=== PATIENT | female | born 1940 | race Caucasian/White ===

== ENCOUNTER 2017-02-10 11:12 | Emergency (ER) | payer OTHER ==
[~2017-02-10] VITALS: Ht 157.5 cm; Wt 102.1 kg
[~2017-02-10 11:12] MED LIST: ACTOS 30 MG TAB30 M1 PO; CLEOCIN HCL300 MG PO; DIAZEPAM 2MG TAB2 MG PO; DILTIAZEM 24HR180 MG; DILTIAZEM 24HR240 MG PO; GLUCOPHAGE XR500 MG PO; GLUCOPHAGE500 MG PO; NORCO 5-325 TA1 EACH PO; PRINIVIL20 M1; PROAIR HFA8.5 GM IH; PROAIR HFA8.5 GM INH; PROTONIX40 M2 PO; ZYRTEC 10 MG TA10 M1 PO; ZYRTEC-D TABLE1 EAC1
[2017-02-10 12:23] VITALS: BP 172/84
== END 2017-02-10 12:24 | disposition home or self-care (01) ==
LOC: ER 11:12
DX: S00.03XA Contusion of scalp, initial encounter (principal); S50.01XA Contusion of right elbow, initial encounter; I10 Essential (primary) hypertension; K21.9 Gastro-esophageal reflux disease without esophagitis; J45.909 Unspecified asthma, uncomplicated; E11.9 Type 2 diabetes mellitus without complications; Z96.651 Presence of right artificial knee joint; Z88.0 Allergy status to penicillin; W01.0XXA Fall on same level from slipping, tripping and stumbling without subsequent striking against object, initial encounter; Y93.31 Activity, mountain climbing, rock climbing and wall climbing; Y92.828 Other wilderness area as the place of occurrence of the external cause; Y99.8 Other external cause status

== ENCOUNTER 2017-11-08 13:31 | Inpatient (IN) | payer OTHER ==
[~2017-11-08] VITALS: Ht 157.5 cm; Wt 95.6 kg
--- NOTE | ~2017-11-08 | P ---
[facility] [place] [address] PROCEDURE REPORT Name: ESTEFANI RIOS Room #: 419-P [facility] IN ..#: [id number] Admission: 11/08/17 Attend Phys: Hector Self MD Discharge: Date of : 40 Report #: [id number] THIS REPORT FOR: //name// CC: Hector Posada DATE OF SERVICE: 11/09/2017 REQUESTING PHYSICIAN: Nayan Posada MD. CHIEF COMPLAINT: Right lateral thigh necrotic wound. HISTORY OF PRESENT ILLNESS: This is a pleasant white female who sustained a possible spider bite several days ago, which has been progressively getting worse and failed outpatient oral antibiotic therapy. I was asked to see the patient for debridement of the necrotic tissue. PREPROCEDURE DIAGNOSES: 1. Insect bite with envenomation of the right hip with central area of necrosis. 2. Diabetes mellitus. POSTPROCEDURE DIAGNOSES: 1. Insect bite with envenomation of the right hip with central area of necrosis. 2. Diabetes mellitus. DESCRIPTION OF PROCEDURE: After timeout was taken, verbal consent was obtained. The patient had excisional debridement down to and including subcutaneous tissue with removal of both viable and nonviable tissue using scalpel and forceps. 1% lidocaine with epinephrine was used with a total of 10 mL injected. The patient had adequate anesthesia with that. 100% of the wound was debrided for a total of less than 20 cm2 that was debrided. Preprocedure measurements were 3.3 x 4.2 x 0.1 cm. Postprocedure measurements were 3.3 x 4.5 x 1.8 cm. Bleeding was minimal, easily controlled with pressure and silver nitrate cauterization. Post-debridement, the patient had the wound packed with morphine, Silvadene moist gauze and covered with an ABD. The patient tolerated the procedure well. The debrided tissue was sent to pathology as well. By: [id number] Charly Rene MD /nt
--- NOTE | ~2017-11-08 | HC ---
[facility] [place] [address] CONSULTATION Name: ESTEFANI RIOS Room #: 419-P ADM IN ..#: [id number] Admission: 11/08/17 Attend Phys: Hector Self MD Discharge: Date of : 40 Report #: [id number] THIS REPORT FOR: //name// CC: Hector Posada DATE OF SERVICE: 11/09/2017 WOUND CARE CONSULTATION REQUESTING PHYSICIAN: Dr. Nayan Posada. CHIEF COMPLAINT: Right hip wound, concerning for brown recluse spider bite. HISTORY OF PRESENT ILLNESS: This is a 77-year-old white female who states several days ago, she was at her grandson's baseball game sitting outside for a prolonged period of time and later that evening, noted that she had an area of redness and itching along the right lateral aspect of her hip. The patient states that within the next 24 hours, she started having increasing pain and warmth. She saw her primary care physician, Dr. Nayan Posada who placed on Bactrim and then followed her up. The patient was having progression of the erythema, the warmth and the size of the area, so the patient was admitted for IV antibiotics and we were asked to see the patient for wound care. The patient does complain of minimal pain associated with this. The patient denies actual fevers or chills. The patient states she has never had any other wounds that she could not heal in the past. PAST MEDICAL HISTORY: The patient herself is somewhat poor historian and past medical history and rest of the history is obtained from the chart. The patient, according to the chart, has a history of type 2 diabetes with noncompliance, history of toxic encephalopathy, history of early dementia. CURRENT MEDICATIONS: Multiple, I reviewed the patient's medication list. DRUG ALLERGIES: None. SOCIAL HISTORY: The patient lives with her . FAMILY HISTORY: Not pertinent to current medical condition. REVIEW OF SYSTEMS: CONSTITUTIONAL: The patient denies fevers or chills. NEUROLOGIC: The patient denies numbness, tingling, weakness in arms or legs. EYES: No complaints. ENT: No complaints. CARDIAC: The patient denies chest pain, palpitations, peripheral edema. [facility] [address] [place] [address] CONSULTATION Name: ESTEFANI RIOS Room #: 419-P [facility] IN [facility].#: [id number] Admission: 11/08/17 Attend Phys: Hector Self MD Discharge: Date of : 40 Report #: [id number] RESPIRATORY: The patient denies shortness breath, cough or wheezes. GASTROINTESTINAL: The patient denies nausea, vomiting, abdominal pain. GENITOURINARY: The patient denies urgency or frequency. MUSCULOSKELETAL: No complaints. SKIN: There is an area of induration and necrosis on the right lateral thigh. PHYSICAL EXAMINATION: VITAL SIGNS: Temperature 36, pulse 76, respiratory rate 16, BP 168/76. GENERAL: This is an alert, oriented x [address], but not time elderly white female who is in no obvious distress. HEENT: Normocephalic, atraumatic. Mucous membranes moist. Pupils are round. Sclerae are white. NECK: Supple, nontender. LUNGS: Clear. HEART: Regular. ABDOMEN: Obese, soft, otherwise nontender. EXTREMITIES: The patient moves all extremities without difficulty. Distal pulses are intact. NEUROLOGIC: Cranial nerves 2-12 grossly intact. Motor and sensory grossly intact. SKIN: Evaluation reveals an area of induration approximately 5 x 7 cm with a central area of necrosis approximately 3 cm. It is firm and not fluctuant, slightly tender to palpation. There is increased warmth. There is some area of denuded epithelial tissue. No other associated wounds are noted. NEUROLOGIC: Cranial nerves 2-12 grossly intact. Motor and sensory grossly intact. LABORATORY DATA: White count 7.8, hemoglobin 13.9. Albumin 3.4, glucose is 195, creatinine is 1.4. Soft tissue ultrasound of the right lower extremity shows no signs of abscess. WOUND CARE COURSE: An excisional debridement was performed of this wound, please see separate note for this. The patient tolerated the procedure well. I spoke with Dr. Nayan Posada. At this point in time, we will start morphine, Silvadene cream packed within the wound twice daily, cover this with an ABD. The patient is already on minocycline for both antibacterial as well as anti-inflammatory effects as recommended per Dr. Helio Bailey, cook fast food. IMPRESSION: 1. Right lateral hip wound, most likely secondary to brown recluse spider envenomation with cellulitis. 2. Status post debridement, right lateral hip wound. 3. Diabetes mellitus, type 2. 4. Early dementia. 5. Generalized debility. [address] [address] CONSULTATION Name: BLANCA,ESTEFANI Ewing Room #: 419-P [facility] IN M.R.#: [id number] Admission: 11/08/17 Attend Phys: Hector Self MD Discharge: Date of : 40 Report #: [id number] PLAN: Described as above. We will also make sure we continue to maximize the patient's protein supplementation for healing and glycemic control. At the time of discharge, the patient will be sent home with home health for continued dressing changes. We will follow the patient up as an outpatient to ensure adequate healing. I appreciate the ability to consult. By: [id number] Charly Rene MD /irvin
--- NOTE | ~2017-11-08 | H ---
[facility] [place] [address] HISTORY AND PHYSICAL Name: ESTEFANI RIOS Room #: 419-P [facility] IN M.R.#: [id number] Admission: 11/08/17 Attend Phys: Cassie Self MD Discharge: 11/10/17 Date of : 40 Report #: [id number] THIS REPORT FOR: //name// CC: Cassie Posada CHIEF COMPLAINT: Progressive skin involvement from venom exposure from an insect bite, noncompliance, dementia, failure of outpatient treatment. HISTORY OF PRESENT ILLNESS: The patient is a 77-year-old white female with a history of diabetes and mild cognitive dysfunction and noncompliance. She presented to my office on 11/02/2017 with 10 x 5 area of superficial erythema with a small tiny central bite cassie over the right lateral hip. She was placed on sulfamethoxazole/trimethoprim and asked to return in 4 days. She returned on 11/06/2017 with a 3 cm vesicle that was flaccid with bloody fluid inside. The superficial erythema had progressed to a 5-10 mm of induration, although the total 10 x cm size remained unchanged. The lesion was tender. The patient vehemently denied having been given a prescription for an antibiotic. Telephone call with the pharmacy indicated that the patient had picked up the antibiotic and had paid a copay of about $2. At this time, a glucose-6 PD blood test was drawn with the intention of starting dapsone if necessary. Prednisone was prescribed and sent to her pharmacy. A followup appointment was made. The patient presented on 11/08/2017 for a recheck. At this time, there was deeper induration and significant areas of necrosis covering the bulk of the lesion. The lesion was tender. The patient was unable to recall taking any special medications to treat this lesion. She did report that it was tender and sore. PAST MEDICAL HISTORY: Over the last several years, she has become progressively noncompliant with medications for her type 2 diabetes, and her hemoglobin A1c has steadily risen with the most recent A1c being a 9.5 on 10/26/2017. She has chronic kidney disease stage 3 with an eGFR of 52. Her fasting blood sugar was 189 at that time, her A1c was 9.5. She has hypertension, restless legs syndrome. MEDICATIONS: Her medication list consists of Bystolic 5 mg 1 daily, metformin 500 mg twice daily, lisinopril 20 mg once daily. Although she insisted that this list was absolutely complete, she later realized that it did not include her ropinirole 2 mg she takes in the evening for restless legs syndrome. ALLERGIES: PENICILLIN. SOCIAL HISTORY: She lives in her own home with her . She does not drink nor smoke nor use drugs of abuse. They do have a 40-year-old adult son who at times lives with them, but she indicates they do not need him to help them keep track of their medications or medical treatments. [address] [address] HISTORY AND PHYSICAL Name: ESTEFANI RIOS Room #: 419-P [facility] IN M.R.#: [id number] Admission: 11/08/17 Attend Phys: Cassie Self MD Discharge: 11/10/17 Date of : 40 Report #: [id number] REVIEW OF SYSTEMS: Entirely negative except for the pain of the insect envenomation area of the right hip. She denies urination problems. OBJECTIVE: VITAL SIGNS: Her blood pressure is 152/78, pulse 71. HEENT: Unremarkable. LUNGS: Clear. ABDOMEN: Obese and soft and nontender, without hepatosplenomegaly. CARDIOVASCULAR: Heart tones are normal with a grade 3/6 systolic ejection murmur. SKIN: The skin of the feet are intact. There is a 5 x 7 cm now area of deep induration over the right hip. There is a 3 cm central area where the blister has ruptured and the surface of the skin appears to be intact despite necrosis having taken place. NEUROLOGIC: She appears slightly more confused than usual. LABORATORY DATA: Her fingerstick blood sugar in the office was 211. ASSESSMENT: 1. Insect envenomation of the right hip, characteristic of a brown recluse spider bite with deep induration, at least 5 x 7 cm of size with central necrosis. 2. Complete failure of outpatient treatment because of the patient's cognitive dysfunction: She is not taking the prescribed prednisone nor the prescribed antibiotic. She denies having had prescriptions for these medications. 3. Cognitive dysfunction: The patient does not recognize having cognitive dysfunction and denies having been given these prescriptions, although the pharmacy confirms that she had picked them up and made her copayments for them. 4. Hyperglycemia with its attendant confusion and immunosuppression. 5. Today, she is more confused than usual: Toxic encephalopathy. 6. Chronic kidney disease stage 3. 7. Hypertension. 8. Restless legs syndrome. PLAN: Treatment of an insect bite envenomation requires anti-inflammation medications to reduce the spread of the necrosis. The patient has demonstrated she is unable to take prednisone as an outpatient at home, and therefore requires hospitalization where the medication can be reliably delivered. With an envenomation and skin necrosis of this severe degree, the anti-inflammatory medication needs to be intravenous corticosteroids. The intravenous corticosteroids will raise her already high blood sugars. The patient does not have the cognitive ability to check her blood sugars 4 times a day and administer insulin at home, and therefore, this needs to be done in an inpatient setting. Antibiotics need to be administered as well. Dermatology specialty consultation is necessary to confirm the diagnosis and treatment approach. Wound care consultation is necessary should debridement become indicated, and [facility] [address] [place] [address] HISTORY AND PHYSICAL Name: CASEESTEFANI Room #: 419-P DIS IN M.R.#: [id number] Admission: 11/08/17 Attend Phys: Cassie Self MD Discharge: 11/10/17 Date of : 40 Report #: [id number] for continued followup as well. ADDITIONAL DIAGNOSIS: As the patient got up, out of her chair in my office, she left a substantial red spot from being incontinent of urine during the visit. She denied having urine and bladder control problems. ADDITIONAL DIAGNOSIS: Urinary incontinence. By: [id number] Nayan Posada MD /nt
--- NOTE | ~2017-11-08 | D ---
[facility] [place] [address] DISCHARGE SUMMARY Name: ESTEFANI RIOS Room #: 419-P [facility] IN M.R.#: [id number] Admission: 11/08/17 Attend Phys: Cassie Self MD Discharge: 11/10/17 Date of : 40 Report #: [id number] THIS REPORT FOR: //name// CC: Cassie Posada DATE OF SERVICE: 11/10/2017 SUMMARY OF HISTORY AND PHYSICAL: The patient presented to the office on 11/08/2017 after a 6-day trial of outpatient treatment at home for an envenomation insect bite lesion to her right hip. The size of the lesion and depth of the lesion steadily progressed. At the same time, the patient insisted she had not been given any prescription medications to treat it. Cognitive dysfunction and toxic encephalopathy were confirmed when her pharmacy reported that indeed she had picked up the medications and made her copayment for them. Inpatient hospitalization for aggressive treatment to arrest the steady progression of the envenomation was indicated. SUMMARY OF HOSPITAL COURSE: She was admitted to the hospital and immediately started on intravenous Solu-Medrol every 6 hours. Over the next 24 hours, there was no improvement in the induration of her lesion. At the 48-hour cassie, there was a small, but definite amount of lessening of the circumference of her lesion and the depths of the induration. She was seen in consultation by Dr. Bailey of the Dermatology service. It was his impression that she had a brown recluse spider bite. The lesion had been debrided at the time of his examination. He felt that she did not have a systemic reaction to the brown recluse bite, and that it was confined to the skin. He recommended continuation of the antibiotics and continuation of the corticosteroid therapy. He recommended close outpatient followup after the patient was discharged. She was seen in wound care consultation by Dr. Charly Rene, who debrided the lesion. The pathology report confirmed fat necrosis, as well as marked acute inflammation and fibrinoid degeneration. On the day of discharge, she was alert and oriented with clear lung krishna and persistent grade 3/6 systolic murmur. She reported feeling better with minimal discomfort. Examination showed the beginning of shrinking of the size of the lesion and shrinking of the degree of induration. On the day of discharge, her mental clarity had improved and was attributed to her blood sugars having been lowered through the use of her sliding scale insulin. She remained unaware of urine incontinence, the nurse pointed out to her that when she got up from her chair, the blankets she had been sitting on was soaked with urine, and she indicated that she had not realized that that had [address] [address] DISCHARGE SUMMARY Name: ESTEFANI RIOS Room #: 419-P [facility] IN M.R.#: [id number] Admission: 11/08/17 Attend Phys: Cassie Self MD Discharge: 11/10/17 Date of : 40 Report #: [id number]. LABORATORY DATA: The pathology report showed fat necrosis. Her blood sugars were 267-377 and managed by sliding scale insulin. Her creatinine was 1.4 compared to her baseline of 1.03. Her BUN was 28 compared to a baseline of 20. WBCs were 7.8 thousand, hemoglobin was 13.9. Glucose 6-PD from the office became available, and was normal. Hemoglobin A1c was 8.4. Urinalysis was normal except for trace white blood cells, and a culture was negative. At the time of dictation, a culture of the wound debridement is pending. CT scan of the abdomen and pelvis showed borderline prominent right inguinal adenopathy that could be reactive, but was otherwise unremarkable. Ultrasound around the area of the right hip was negative. Chest x-ray was unremarkable. DISCHARGE DIAGNOSES: 1. Brown recluse bite with a large area of envenomation with biopsy-proven fat necrosis of the right thigh. 2. Demonstrated response to intravenous corticosteroid therapy while she was in the hospital. 3. Debridement of the necrotic areas was indicated and was performed. 4. Toxic encephalopathy that improved with treatment of the lesion. 5. Significant cognitive dysfunction that the patient denied, was an important feature of the failure of outpatient treatment of the lesion prior to being hospitalized. 6. Chronic kidney disease with mild acute decrease in kidney function. 7. Hypertension. 8. Hyperglycemia that was managed with sliding scale insulin. 9. She is immunosuppressed from her long-standing poorly controlled diabetes and more acute hyperglycemia. 10. Restless legs syndrome. 11. Grade 3/6 systolic ejection murmur. 12. The patient denied urinary incontinence, although she was incontinent of urine. PLAN: The patient's lesion was felt sufficiently stable by the 2 expert consultants for outpatient therapy. Prednisone 40 mg a day with minocycline 100 mg twice daily and the addition of Jardiance samples to her diabetic treatment regimen along with close clinical followup by home health nursing was planned. Written prescriptions were given to the patient and her . Orders were sent to the home health care agency to open her case today after discharge. She is to come see me in the office in 2 days. Written wound care instructions for [facility] [address] [place] [address] DISCHARGE SUMMARY Name: ESTEFANI RIOS Room #: 419-P [facility] IN ..#: [id number] Admission: 11/08/17 Attend Phys: Cassie Self MD Discharge: 11/10/17 Date of : 40 Report #: [id number] cleansing and placement of Xeroform gauze with the addition of Silvadene/morphine ointment were sent to the home health care agency as well as handed to the patient and her . Standard instructions to call if any questions or problems arose were given to the patient and her . By: 0820 1018 Nayan Posada MD /nt
--- NOTE | ~2017-11-08 | PATH ---
[facility] [address] [place] [address] PATHOLOGY RPT PROCEDURE Name: ESTEFANI IRIZARRY Room #: 419-P [facility] IN M.R.#: [id number] Admission: 11/08/17 Date of : 40 Discharge: 11/10/17 Report #: [id number] Path Case #: [id number] [facility] Accession Number: [id number] . 01 Material submitted: . RIGHT UPPER THIGH . 01 Clinical history: . Cellulitis . 02 Diagnosis: Fibrovascular connective tissue, right upper thigh, debridement: - Marked acute inflammation associated with fibrinoid degeneration and areas of fat necrosis. (IUV:zozie; 11/13/2017) QMS/11/13/2017 . 02 Electronically signed: . Madeline Nelson MD, Pathologist NPI- [id number] . 01 Gross description: . The specimen is received in formalin, labeled "Estefani Irizarry, right upper thigh", and is one half of an unoriented skin ellipse measuring 2.4 x 1.5 excised to a depth of 1.0 cm. The skin surface is quach-brown within the epidermis divided into a checkered pattern. The specimen is serially sectioned into 5 pieces to show a quach-yellow edematous cut surface. Associate Professor Of Kinesiology sections are submitted in A1 and A2. ([facility]; 11/12/2017) SHS/SHS . 02 Pathologist provided ICD-10: L03.115 . 02 CPT . 341852 Performed at: [address] [id number] MD Vitaliy Queen MD Phone: [phone] Performed at: [address] [id number] MD Madeline Nelson MD Phone: [phone]
[2017-11-08 15:23] LABS: ABSOLUTE NEUTROPHILS 4.4 thou/uL (1.4-8.2); BASOPHILS 1.1 % (0.0-2.0); EOSINOPHILS 9.9 % (0.0-3.0); HEMOGLOBIN 13.9 gm/dL (12.0-15.0); LYMPHOCYTES 27.9 % (24.0-44.0); MCH 30.5 pg (26.0-34.0); MCHC 33.8 g/dL (28.0-37.0); MCV 90.2 fL (80.0-100.0); MONOCYTES 4.4 % (1.0-8.0); PLATELET COUNT 208 thou/uL (150-400); POLYS 56.7 % (36.0-66.0); RBC 4.54 mil/uL (4.20-5.00); RDW 13.8 % (10.5-14.5); WBC 7.8 thou/uL (4.0-11.0)
[2017-11-08 15:37] LABS: ALBUMIN 3.4 g/dL (3.4-5.0); CALCIUM 9.2 mg/dL (8.5-10.1); CREATININE 1.4 mg/dL (0.6-1.0); TOTAL BILIRUBIN 0.5 mg/dL (<0.1-1.0); TOTAL PROTEIN 6.9 g/dL (6.4-8.2)
[2017-11-08 16:27] LABS: URINE BILIRUBIN NEGATIVE (Negative); URINE BLOOD NEGATIVE (Negative); URINE CLARITY CLEAR; URINE COLOR YELLOW; URINE GLUCOSE-RANDOM* NEGATIVE (Negative); URINE KETONES NEGATIVE (Negative); URINE NITRITE-REFLEX NEGATIVE (Negative); URINE PROTEIN (DIPSTICK) NEGATIVE (Negative); URINE UROBILINOGEN 0.2 E.U./dl (0.2-1.0)
[2017-11-08 16:28] LABS: URINE LEUKOCYTES-REFLEX TRACE (Negative)
[2017-11-08 19:35] VITALS: BP 153/84
[2017-11-09 01:07] LABS: GLYCOHEMOGLOBIN (HGB A1C) 8.4 % (4.8-5.6)
[2017-11-09 03:35] VITALS: BP 167/88
[2017-11-09 07:15] VITALS: BP 168/76
[2017-11-09 13:43] VITALS: BP 168/76
[2017-11-09 15:43] VITALS: BP 153/77
[2017-11-09 21:06] VITALS: BP 164/88
[2017-11-10 04:22] LABS: ALBUMIN 3.3 g/dL (3.4-5.0); CREATININE 1.3 mg/dL (0.6-1.0); POTASSIUM 4.8 mmol/L (3.5-5.1); TOTAL BILIRUBIN 0.3 mg/dL (<0.1-1.0); TOTAL PROTEIN 6.8 g/dL (6.4-8.2)
[2017-11-10 05:31] VITALS: BP 160/97
[2017-11-10 07:50] VITALS: BP 177/99
[2017-11-10] MEDS ORDERED: JARDIANCE10 MG PO (12:32)
[2017-11-10] MEDS ORDERED: PREDNISONE 10 M10 MG PO (12:32)
[2017-11-10] MEDS ORDERED: REQUIP 1 MG TABL1 M1 PO (12:32)
[2017-11-10] MEDS ORDERED: MINOCIN100 MG PO (12:32)
[2017-11-10] MEDS ORDERED: MORPHINE SULFAT15 M3 TOP (12:39)
[2017-11-10] MEDS ORDERED: TENORMIN25 MG PO (12:46)
[2017-11-10 13:30] VITALS: BP 168/76
== END 2017-11-10 14:15 | disposition home health service (06) | DRG 901 ==
LOC: 4E 13:31
PROVIDERS: Internal Medicine
PROC: 0JBL0ZZ Excision of Right Upper Leg Subcutaneous Tissue and Fascia, Open Approach (ICD-10-PCS; principal; 2017-11-09)
DX: T63.334A Toxic effect of venom of brown recluse spider, undetermined, initial encounter (principal); G92 Toxic encephalopathy; F03.90 Unspecified dementia, unspecified severity, without behavioral disturbance, psychotic disturbance, mood disturbance, and anxiety; E11.65 Type 2 diabetes mellitus with hyperglycemia; I10 Essential (primary) hypertension; F09 Unspecified mental disorder due to known physiological condition; Z88.0 Allergy status to penicillin; Z91.19 Patient's noncompliance with other medical treatment and regimen; Y92.310 Basketball court as the place of occurrence of the external cause
CPT/HCPCS: 10183

== ENCOUNTER 2017-11-26 12:53 | Inpatient (IN) | payer OTHER ==
[~2017-11-26] VITALS: Ht 157.5 cm; Wt 91.5 kg
--- NOTE | ~2017-11-26 | O ---
[facility] [place] [address] OPERATIVE REPORT Name: ESTEFANI RIOS Room #: 217-P [facility] IN .R.#: [id number] Admission: 11/26/17 Attend Phys: Hector Self MD Discharge: Date of : 40 Report #: [id number] THIS REPORT FOR: //name// CC: Hector Posada DATE OF SERVICE: 11/27/2017 PREOPERATIVE DIAGNOSIS: Necrotic wound, right leg with necrotic fat and skin edge. This is likely from a spider bite. POSTOPERATIVE DIAGNOSIS: Necrotic wound, right leg with necrotic fat and skin edge. This is likely from a spider bite. PROCEDURE PERFORMED: Debridement of necrotic skin edges and subcutaneous fatty tissue. The wound was then closed with nylon sutures loosely. Packed with saline-soaked gauze. ANESTHESIA: IV sedation and local 0.25% Marcaine at the suture site. DESCRIPTION OF PROCEDURE: With the patient under IV sedation, the right leg was prepped and draped in sterile fashion, Betadine was used to prep the leg. A fine pickup and Metzenbaum scissor was used to trim the necrotic subcutaneous fat tissue. I also trimmed several areas of the skin, about a millimeter thickness. The wound looks clean after the debridement. I did not see any purulent fluid present. The wound looked like it could come together pretty easily. So, I did go ahead and closed the wound loosely with external nylon suture. Three separate 4-0 nylon sutures were placed. At the corner, loose and fluffy gauze was then used to pack the cavity. Hopefully, this will allow the wound to heal up. This was discussed with the family. She will not need any dressing change at this point. I will probably remove the packing in 24 hours. There is a chance that it may not work this way and will have to be treated as an open wound subsequently. By: 1724 1745 Bc Wirght MD /nt
--- NOTE | ~2017-11-26 | H ---
[facility] [place] [address] HISTORY AND PHYSICAL Name: ESTEFANI RIOS Room #: 217-P [facility] IN M.R.#: [id number] Admission: 11/26/17 Attend Phys: Hector Self MD Discharge: 11/29/17 Date of : 40 Report #: [id number] THIS REPORT FOR: //name// CC: Hector Posada DATE OF SERVICE: 11/26/2017 CHIEF COMPLAINT: Envenomation brown recluse bite with large open wound that is not healing and is infected. The patient suffered an envenomation from an insect bite characteristic of brown recluse spider on about 10/30/2017 while at an outside sporting event. She presented to my office on 11/02/2017 and despite treatment as best she could accomplish, the lesion progressed and on 11/08/2017, it was about 10 cm in diameter with 5-10 mm of induration and a large vesicle had formed and ruptured. She was admitted because of failure of outpatient therapy to improve the envenomation from the insect and to slow down the spread of the toxin effect. The wound was debrided and she was treated with intravenous corticosteroids and after two days of aggressive therapy the wound began to decrease in induration and size. At that time, she was discharged with home health to monitor her taking her pills and for dressing changes. Since then, there has been no significant improvement. She came to the office today for a followup visit and her wound had copious amounts of thick green pus draining from it. The induration was still present and the size of the wound had not improved. She was in tears over the lack of improvement. The wound itself was also quite tender to the touch and painful. PAST MEDICAL HISTORY: Significant for a long history of noncompliance with slowly progressive cognitive dysfunction that the patient denies. She has type 2 diabetes, chronic kidney disease, hypertension, hyperglycemia, restless legs syndrome, grade 3/6 systolic ejection murmur and urinary incontinence. Her EGFR was 52 and her hemoglobin A1c was 9.5 in early October. ALLERGIES: PENICILLIN. SOCIAL HISTORY: She lives in her home with her and an adult son also is living with them currently. Initially, she said that he did not help with her medications and then she said that he bought her a large pill box with multiple small places to put medications on a daily basis. She said she did take medicines from the pill container, and also said she took the pills from her bottles "mostly in the morning when I think about it." REVIEW OF SYSTEMS: HEENT is unremarkable. There is no breathing problems, shortness of breath or chest pain. She does not have abdominal discomfort, constipation or diarrhea. She denies urinary difficulties. She denies [facility] [address] [place] [address] HISTORY AND PHYSICAL Name: ESTEFANI RIOS Room #: 217-P DIS IN M.R.#: [id number] Admission: 11/26/17 Attend Phys: Hector Self MD Discharge: 11/29/17 Date of : 40 Report #: [id number] musculoskeletal complaints. She does report that she has not been able to bath since she had the spider bite because the nursing staff told her not to get the wound wet. CURRENT MEDICATIONS: She brought her pill bottles, many of which are empty: Doxycycline 100 mg 1 twice daily was prescribed on 11/16/2017 and should just be finished. She also had a bottle for minocycline 100 mg 1 twice daily prescribed on 11/12/2017 for 10 days and is also empty. Prednisone 10 mg 2 pills twice daily prescribed on 11/11/2017 has 2 pills remaining. Bystolic 5 mg 1 daily, 30 tablets filled on 10/26/2017 has approximately 20 tablets left and atenolol 25 mg #30 filled on 11/11/2017 has been taken more frequently than prescribed and has only 8 pills left. Lisinopril 20 mg 1 in the morning filled on 10/26/2017, 30 tablets has 8 tablets left and should be empty and Jardiance 10 mg tablets a sample bottle is empty. She did not bring ropinirole, which she depends on for restless legs syndrome, so that she can sleep at night. She does not know the dose, but reminded me to be sure to order it for her so she can sleep. OBJECTIVE: GENERAL: A well-developed, well-nourished female with strong odor of urine was sitting in my office in tears. HEENT: Oropharynx is unremarkable. LUNGS: Clear. HEART: Tones are normal with a grade 3/6 systolic ejection murmur and the rhythm is regular. ABDOMEN: Soft and nontender without hepatosplenomegaly or masses. There is a large 8 cm diameter perhaps 5 cm deep circular wound with copious amounts of thick green pus coming forth on the dressing. It is tender to touch. There is deep induration around the edges. EXTREMITIES: There is no edema in the lower extremities. NEUROLOGIC: Screening neurological examination is intact. ASSESSMENT: 1. Brown recluse spider bite with biopsy proven necrosis from envenomation that is currently infected and failing to heal despite maximal possible outpatient therapy. 2. Mild to moderate cognitive dysfunction. 3. The patient is not able to comply with medications even with help of home health and her son setting out pills for her to take. 4. Type 2 diabetes is uncontrolled with a random blood sugar in the hospital of 199. 5. Hypertension. 6. Restless legs syndrome. 7. Immunosuppressed from prednisone therapy and high blood sugars. 8. Chronic kidney disease stage 3. [facility] [address] [place] [address] HISTORY AND PHYSICAL Name: ESTEFANI RIOS Room #: 217-P [facility] IN .R.#: [id number] Admission: 11/26/17 Attend Phys: Hector Self MD Discharge: 11/29/17 Date of : 40 Report #: [id number] 9. Leukocytosis with an elevated white blood cell count of 11.2 thousand and a left shift with 78% segmented neutrophils. 10. Significant cognitive dysfunction that she does not recognize. 11. Incontinence of urine. PLAN: The patient is admitted for intravenous fluids and intravenous antibiotics and surgical consultation. There is being consideration for a debridement of the area in the operating room under general anesthesia. Full inpatient hospitalization indicated because of actively infected wound not responding to maximum possible care as an outpatient. Previous wound was a result of envenomation and was found to have biopsy proven necrotic tissue. <ELECTRONICALLY SIGNED> By: Nayan Posada MD 12/02/17 2118 2106 [id number] Nyaan Posada MD /nt
--- NOTE | ~2017-11-26 | D ---
[facility] [place] [address] DISCHARGE SUMMARY Name: ESTEFANI RIOS Room #: 217-P [facility] IN M.R.#: [id number] Admission: 11/26/17 Attend Phys: Hector Self MD Discharge: 11/29/17 Date of : 40 Report #: [id number] THIS REPORT FOR: //name// CC: [facility] Hector Posada DATE OF SERVICE: 11/29/2017 ADDENDUM. Part of the reason that her wound is not healing well is that her diabetes is not under control, and her elevated blood sugars compromise her immune response and retard her healing. Therefore, a senior living facility is necessary to control her blood sugars so that her immune response will be closer to normal, and she will be able to heal the lesion. Also, her wound care will be better than she was able to get at home. [facility] facility stay is essential in order for this wound to heal. <ELECTRONICALLY SIGNED> By: Nayan Posada MD 12/02/17 2115 1540 1736 Nayan Posada MD /nt
--- NOTE | ~2017-11-26 | EKG ---
[address] [place] [address] ELECTROCARDIOGRAM REPORT Name: ESTEFANI RIOS Room #: 217-P ADM IN M.R.#: [id number] Admission: 11/26/17 Attend Phys: Hector Self MD Discharge: Date of : 40 Report #: [id number] THIS REPORT FOR: //name// [facility] Test Date: 2017-11-26 Test Time: 21:46:12 Pat Name: ESTEFANI RIOS Department: Room: 217 P Gender: F Child Care Lead Teacher: Karen HAYNES : 1940 Requested By: Nayan Posada Order Number: [id number] MD: Neel Yanes Measurements Intervals [place] Rate: 49 P: 18 AK: 164 QRS: -11 QRSD: 105 T: 11 QT: 457 QTc: 413 Interpretive Statements Sinus bradycardia Inferior infarct, old Compared to ECG 08/28/2006 13:26:00 Myocardial infarct finding now present Sinus rhythm no longer present Prolonged QT interval no longer present Electronically Signed On 11-26-2017 22:10:02 CDT by Neel Yanes [email or web address] <ELECTRONICALLY SIGNED> By: Neel Yanes MD 11/26/17 2210 2146 Neel Yanes MD /AMBER
--- NOTE | ~2017-11-26 | D ---
[facility] [place] [address] DISCHARGE SUMMARY Name: ESTEFANI RIOS Room #: 217-P [facility] IN M..#: [id number] Admission: 11/26/17 Attend Phys: Hector Self MD Discharge: 11/29/17 Date of : 40 Report #: [id number] THIS REPORT FOR: //name// CC: Madai Posada DATE OF SERVICE: 11/29/2017 SUMMARY OF HISTORY AND PHYSICAL: The patient presented to my office on 11/26 in followup for her envenomation brown recluse spider bite of the right lateral thigh. She was in tears. The wound was painful. The dressing was removed and was covered with thick green foul smelling fibrinous exudate that went down into the depths of the wound. The sides of the wound were tender and indurated. She reported that home health had been changing her dressing every day at home. She brought all of her medication bottles with her and was unable to say which medications she was taking. She required an admission to the hospital because of failure of the wound to respond to outpatient treatment. The wound appeared infected and required intravenous antibiotics. The patient brought 2 empty antibiotic bottles and was not clear when she had taken those antibiotics. SUMMARY OF HOSPITAL COURSE: She was admitted and seen in wound care consultation by Dr. Riky Marion, Infectious Disease consultation by Dr. Yanes, and Surgery consultation by Dr. Bc Wright. She was placed on intravenous antibiotics and intravenous fluids. On 11/27/2017, she underwent debridement of the necrotic skin edges and subcutaneous fatty tissue by Dr. Wright. It was his impression that the necrotic wound findings with necrotic fat and skin edges were consistent with a spider bite. He approximated the edges loosely with nylon sutures and packed it with a saline-soaked gauze. He discussed with the family that there is a chance that the loose closure would not heal appropriately, and that it may need to be treated as an open wound again subsequently. Her hemoglobin A1c returned markedly elevated at 9.1 showing an average sugar of 213, meaning that half of the time it was much higher. She was placed on sliding scale insulin initially with the low dose, which was then increased to a moderate dose. Her blood sugars varied from 227 to a low of 94. She tolerated the sliding scale insulin well. Her white count was elevated at 11.2 on admission with a mild left shift. Her white count dropped to 7.2 thousand prior to discharge. Her hemoglobin was 14.3. Her albumin was 3.1 on admission and the following day after rehydration was 2.7, qualifying for severe malnutrition. Urinalysis showed 3+ glucose and was otherwise unremarkable. [address] [address] DISCHARGE SUMMARY Name: ESTEFANI RIOS Room #: 217-P [facility] IN M.R.#: [id number] Admission: 11/26/17 Attend Phys: Hector Self MD Discharge: 11/29/17 Date of : 40 Report #: [id number] She was followed by the wound care service as well as Dr. Yanes of the Infectious Disease service. The packing was removed and her wound appeared clean at discharge. She continued to exhibit cognitive dysfunction and poor judgment by saying that she did not understand why she needed to go to a prison facility, but she did acknowledge that this was her second emergent hospitalization for this wound because of failure of home treatment. The wound care service noted gaps, as intended, in the incision with minimal drainage and minimal erythema at the time of discharge. DISCHARGE DIAGNOSES: 1. Large necrotic ulcer/wound of the right medial upper thigh from a spider bite with fibrinous purulent discharge and necrosis. 2. Successful debridement and partial closure of the wound. 3. Severe malnutrition. 4. Cognitive dysfunction/early dementia. 5. The patient is not capable of taking care of herself at home, and the wound failed maximal outpatient therapy that included daily dressing changes by home health. 6. Type 2 diabetes that was uncontrolled. 7. Noncompliance with her medications due to dementia, she was unable to administer her medications because of her dementia. 8. Hypertension. 9. Immunosuppression: the high glucoses impaired wound healing, and prevented the wound from healing. She was unable to control her sugars at home. Wound care at home was also impaired. She requires SNF for wound care, sliding scale insulin for blood sugar control, and management of her other medications. 10. Restless legs syndrome. PLAN: She is transferred to [place], [place]. Ciprofloxacin 500 mg twice daily, atenolol 25 mg once daily. Her usual home dose of lisinopril 20 mg was cut in half to 10 mg daily-it was found that since she did get all of her medications in the hospital, administered by the nursing staff, she did not need the full 20 mg lisinopril dose and that the 10 mg dose was adequate. Hydrocodone 5/325 one 4 times a day as needed for pain, but she only needed 1 a day after her surgery. Moderate dose sliding scale insulin before meals and bedtime. Tramadol 50 mg every 4 hours as needed for pain. Ropinirole 2 mg at bedtime for restless legs. Metformin 500 mg twice daily for her diabetes. Paper wound care instructions were given to pack it daily with Aquacel. She is to see Dr. Bc Wright in his office in 2 weeks, or sooner if problems occur with the wound. She is to receive physical therapy and occupational therapy and speech therapy with focus on cognition. [facility] [address] [place] [address] DISCHARGE SUMMARY Name: CASEESTEFANI Room #: 217-P DIS IN M.R.#: [id number] Admission: 11/26/17 Attend Phys: Hector Self MD Discharge: 11/29/17 Date of : 40 Report #: [id number] She is to follow up with Dr. Charly Rene as well. She is to see me in my office in about a month. <ELECTRONICALLY SIGNED> By: Nayan Posada MD 11/30/17 1804 1526 1637 Nayan Posada MD /nt
--- NOTE | ~2017-11-26 | HC ---
[facility] [place] [address] CONSULTATION Name: ESTEFANI RIOS Room #: 217-P [facility] IN M.R.#: [id number] Admission: 11/26/17 Attend Phys: Hector Self MD Discharge: Date of : 40 Report #: [id number] THIS REPORT FOR: //name// CC: Hector Posada DATE OF SERVICE: 11/27/2017 ATTENDING PHYSICIAN: Hector Self MD CONSULTATION REQUESTED BY: Dr. Posada. REASON FOR CONSULTATION: Antibiotic management. HISTORY OF PRESENT ILLNESS: The patient is a 77-year-old white woman who suffered a possible spider bite to the right gluteal area that resulted in a progression to full thickness skin necrosis with exposure of deep tissues, fat and culture has revealed growth of Staphylococcus aureus, oxacillin sensitive. The patient being ALLERGIC TO PENICILLIN is on treatment with Cipro. PAST MEDICAL HISTORY: 1. Diabetes mellitus. 2. Chronic kidney disease. 3. Hypertension. 4. Restless leg syndrome. 5. Urinary incontinence. 6. Cognitive impairment. DRUG ALLERGIES: PENICILLIN. SOCIAL HISTORY: See H and P. FAMILY HISTORY: See H and P. REVIEW OF SYSTEMS: See H and P and as above. MEDICATIONS: The patient is currently on ropinirole 2 mg at bedtime, lisinopril 20 mg daily, atenolol 25 mg daily, insulin lispro per sliding scale, ciprofloxacin 400 mg IV twice daily, p.r.n. glucose glucagon, topical hypochlorite. PHYSICAL EXAMINATION: GENERAL: Well-developed, overweight woman, not toxic looking, afebrile. VITAL SIGNS: Temperature 97.2, pulse 52, respirations 18, BP 124/74, weight 201 pounds, height 5 feet 2 inches. HEENMT: Within range. [facility] [address] [place] [address] CONSULTATION Name: ESTEFANI RIOS Room #: 217-P [facility] IN [facility].#: [id number] Admission: 11/26/17 Attend Phys: Hector Self MD Discharge: Date of : 40 Report #: [id number] NECK: Supple. BREASTS: Deferred. LUNGS: Clear. HEART: S1, S2. ABDOMEN: Soft, no masses or megaly. PELVIC AND RECTAL: Deferred. EXTREMITIES: Right thigh gluteal area examination revealed a full thickness area of rounded skin necrosis, no foul odor. NEUROLOGIC: Grossly within normal limits. LABORATORY DATA: Sodium 138, potassium 3.9, chloride 108, BUN 37, creatinine 1.1, glucose 155. Albumin 2.7 g/dL. WBC 10.2, hemoglobin 14.7, platelets 142,000. Hemoglobin A1c 9.1, average glucose 214. Culture of the right thigh lesion on 11/09/2017 revealed Staphylococcus aureus sensitive to oxacillin, resistant to clindamycin, sensitive to quinolones. ASSESSMENT: 1. Right gluteal area possible spider bite with full thickness skin necrosis. 2. Infection with Staphylococcus aureus, oxacillin sensitive. 3. PENICILLIN ALLERGY. 4. Uncontrolled diabetes mellitus. 5. Chronic kidney disease. 6. Cognitive impairment. SUGGESTIONS: Recommend in view of history of PENICILLIN ALLERGY I suspect Cipro could be a good alternative. The patient is scheduled for surgery by Dr. Wright. We will continue to follow the patient along with you. Dr. Posada, thank you for requesting my suggestions in the care of your patient. <ELECTRONICALLY SIGNED> By: Jerald Yanes MD 11/28/17 1142 1529 08 Jerald Yanes MD /nt
--- NOTE | ~2017-11-26 | HC ---
[facility] [place] [address] CONSULTATION Name: ESTEFANI RIOS Room #: 217-P ADM IN .R.#: [id number] Admission: 11/26/17 Attend Phys: Hector Self MD Discharge: Date of : 40 Report #: [id number] THIS REPORT FOR: //name// CC: Hector Posada DATE OF SERVICE: 11/26/2017 REASON FOR CONSULTATION: Open wound, right thigh with necrotic tissue. HISTORY OF PRESENT ILLNESS: The patient is a 77-year-old who has been admitted because of a necrotic wound. This started about 2 weeks ago. She apparently was at a baseball game with her . She noticed a pain in the right leg. She then had a lesion in the right thigh. It was about 10 cm in diameter with induration and a large vessel cold formation. The patient had received treatment with IV steroids. She then had a home health. She saw Dr. Posada today and had a thick green purulent drainage from it. The patient was brought in for care and wound management has seen her. The patient does have a history of diabetes. On exam, there is a 3-4 cm ulcer with necrotic base and some necrotic skin edge. There are a few areas of granulation developing. IMPRESSION: The patient with a history that is consistent with a spider bite in the left upper lateral thigh. I do not see much redness around it. There is no drainage currently in the ulcer base and there is necrotic tissue. It is not particularly tender. I do not think there is invasive infection here. The necrotic tissue does need to be cleaned out. We will schedule that in the OR under IV sedation tomorrow. By: 1720 1759 Bc Wright MD /nt
--- NOTE | ~2017-11-26 | HC ---
[facility] [address] CONSULTATION Name: ESTEFANI RIOS Room #: 217-P ADM IN ..#: [id number] Admission: 11/26/17 Attend Phys: Hector Self MD Discharge: Date of : 40 Report #: [id number] THIS REPORT FOR: //name// CC: Hector Posada MD DATE OF SERVICE: 11/26/2017 CHIEF COMPLAINT: Ulceration of the right hip following spider bite. HISTORY OF PRESENT ILLNESS: This is a 77-year-old female patient who in mid October noticed a blister on her right upper lateral thigh. She had been at an athletic event and feels that she may have gotten bitten possibly by a spider, although does not recall having been bitten by any particular insect. She has had debridement done and has had complication of wound infection. She is admitted again today with increasing pain, drainage and odor from the site. PAST MEDICAL HISTORY: Positive for diabetes, recent fall, hypertension and the spider bite. ALLERGIES: PENICILLIN. MEDICATIONS: Current reviewed in the MAR. SOCIAL HISTORY: The patient lives with her . No history of alcohol or tobacco use. FAMILY HISTORY: Not pertinent to current medical condition. REVIEW OF SYSTEMS: CONSTITUTIONAL: The patient denies fever, chills or weight loss. NEUROLOGICAL: The patient denies focal weakness. ENT: The patient denies earache, nasal drainage or sore throat. CARDIOVASCULAR: The patient denies chest pain, palpitations or diaphoresis. PULMONARY: The patient denies cough or shortness of breath GASTROINTESTINAL: The patient denies nausea, vomiting, diarrhea or abdominal pain. ORTHOPEDIC: The patient does note a painful ulceration involving her right hip with drainage and odor. Other systems in a 14-point review of systems are negative. PHYSICAL EXAMINATION: VITAL SIGNS: The patient's vital signs at this time include pulse 56, respiratory rate of 20, blood pressure 116/56 and temperature 97.7. GENERAL: This is a chronically ill-appearing female patient who appears to be [address] [address] CONSULTATION Name: ESTEFANI RIOS Room #: 217-P [facility] IN ..#: [id number] Admission: 11/26/17 Attend Phys: Hector Self MD Discharge: Date of : 40 Report #: [id number] in minimal distress. HEENT: Examination of the head is normocephalic. Nose and throat are clear. NECK: Supple. LUNGS: Clear. HEART: Regular ____ sounds. ABDOMEN: Soft, bowel sounds present. SKIN: Examination of the skin demonstrates a circular ulceration involving the right lateral thigh and hip area. There is a moderate amount of necrotic tissue, some periwound erythema is noted and some odor and moderate drainage is noted. NEUROLOGIC: Alert and oriented and appropriate. LABORATORY DATA: Includes sodium 138, potassium is 5.2, chloride 106, CO2 21, BUN 41, creatinine 1.3 and glucose 202. White blood cell count 11.2, hemoglobin of 14.3, hematocrit 43.7. CLINICAL IMPRESSION: 1. Ulceration of the right hip following a spider bite. It was previously presumed to be a brown recluse origin. 2. Type 2 diabetes mellitus. 3. Tafl-wj-gtchxlza protein calorie malnutrition with albumin of 3.0. RECOMMENDATIONS: At this point in time, we will start with local dressing care with quarter strength Dakin's moist gauze dressings to be changed twice daily. We will consult General Surgery, Dr. Bc Wright for a wider excisional type debridement of the area. Hopefully, we will get to a clean base. We will recommend aggressive nutritional support to maximize wound healing and glycemic control. All questions have been answered. I appreciate being asked to see her in consultation. <ELECTRONICALLY SIGNED> By: Mario Marion MD 11/27/17 1211 1807 0147 Mario Marion MD /nt
[~2017-11-26 12:53] MED LIST changes: +JARDIANCE10 MG PO; +MINOCIN100 MG PO; +MORPHINE SULFAT15 M3 TOP; +PREDNISONE 10 M10 MG PO; -PRINIVIL20 M1; +PRINIVIL20 M1 PO; +REQUIP 1 MG TABL1 M1 PO; +TENORMIN25 MG PO
[2017-11-26 13:20] VITALS: BP 111/60
[2017-11-26 14:02] VITALS: BP 111/60
[2017-11-26] MEDS ORDERED: DOXYCYCLINE 10100 MG PO (14:14)
[2017-11-26] MEDS ORDERED: BYSTOLIC 5 MG5 M1 PO (14:15)
[2017-11-26 15:19] LABS: HEMATOCRIT 43.7 % (37.0-47.0); HEMOGLOBIN 14.3 gm/dL (12.0-15.0); MCH 30.2 pg (26.0-34.0); MCHC 32.7 g/dL (28.0-37.0); MCV 92.2 fL (80.0-100.0); PLATELET COUNT 140 thou/uL (150-400); RBC 4.74 mil/uL (4.20-5.00); RDW 14.2 % (10.5-14.5); WBC 11.2 thou/uL (4.0-11.0)
[2017-11-26 15:29] LABS: CALCIUM 8.4 mg/dL (8.5-10.1); CREATININE 1.3 mg/dL (0.6-1.0); POTASSIUM 5.2 mmol/L (3.5-5.1); TOTAL BILIRUBIN 0.5 mg/dL (<0.1-1.0); TOTAL PROTEIN 5.7 g/dL (6.4-8.2)
[2017-11-26 15:45] LABS: ABSOLUTE NEUTROPHILS 8.8 thou/uL (1.4-8.2); LARGE PLATELETS RARE
[2017-11-26 16:05] VITALS: BP 116/56
[2017-11-26 19:58] VITALS: BP 116/58
[2017-11-27] VITALS (8 sets, daily range): BP systolic 107–140; BP diastolic 52–79
[2017-11-27 05:52] LABS: HEMATOCRIT 44.1 % (37.0-47.0); HEMOGLOBIN 14.7 gm/dL (12.0-15.0); MCH 30.7 pg (26.0-34.0); MCHC 33.4 g/dL (28.0-37.0); MCV 92.1 fL (80.0-100.0); RBC 4.79 mil/uL (4.20-5.00); RDW 14.3 % (10.5-14.5); WBC 10.2 thou/uL (4.0-11.0)
[2017-11-27 06:07] LABS: URINE BILIRUBIN NEGATIVE (Negative); URINE BLOOD NEGATIVE (Negative); URINE CLARITY CLEAR; URINE COLOR YELLOW; URINE GLUCOSE-RANDOM* 3+ (Negative); URINE KETONES NEGATIVE (Negative); URINE LEUKOCYTES-REFLEX NEGATIVE (Negative); URINE NITRITE-REFLEX NEGATIVE (Negative); URINE PROTEIN (DIPSTICK) NEGATIVE (Negative); URINE SPECIFIC GRAVITY 1.015 (1.005-1.035); URINE UROBILINOGEN 0.2 E.U./dl (0.2-1.0)
[2017-11-27 08:03] LABS: ALBUMIN 2.7 g/dL (3.4-5.0); CALCIUM 8.3 mg/dL (8.5-10.1); CREATININE 1.1 mg/dL (0.6-1.0); POTASSIUM 3.9 mmol/L (3.5-5.1); TOTAL BILIRUBIN 0.7 mg/dL (<0.1-1.0); TOTAL PROTEIN 5.4 g/dL (6.4-8.2)
[2017-11-27 12:13] LABS: GLYCOHEMOGLOBIN (HGB A1C) 9.1 % (4.8-5.6)
[2017-11-28 03:43] VITALS: BP 120/64
[2017-11-28 07:54] LABS: HEMATOCRIT 43.1 % (37.0-47.0); HEMOGLOBIN 14.5 gm/dL (12.0-15.0); MCH 30.5 pg (26.0-34.0); MCHC 33.7 g/dL (28.0-37.0); MCV 90.7 fL (80.0-100.0); RBC 4.75 mil/uL (4.20-5.00); RDW 14.3 % (10.5-14.5); WBC 7.7 thou/uL (4.0-11.0)
[2017-11-28 08:00] VITALS: BP 135/70
[2017-11-28 11:12] VITALS: BP 127/79
[2017-11-28 19:31] VITALS: BP 109/59
[2017-11-29 03:25] VITALS: BP 112/53
[2017-11-29 07:32] VITALS: BP 109/63
[2017-11-29 14:59] VITALS: BP 95/53
[2017-11-29] MEDS ORDERED: CIPRO500 MG PO (17:35)
[2017-11-29] MEDS ORDERED: ATENOLOL 25MG T25 M1 PO (17:36)
[2017-11-29] MEDS ORDERED: LISINOPRIL10 MG PO (17:37)
[2017-11-29] MEDS ORDERED: HYDROCODON-ACE1 EAC7 PO (17:38)
[2017-11-29] MEDS ORDERED: TRAMADOL 50 MG50 MG PO (17:40)
[2017-11-29] MEDS ORDERED: GLUCOSE4 GM PO (17:41)
[2017-11-29] MEDS ORDERED: GLUTOSE GEL 1515 G1 PO (17:41)
[2017-11-29] MEDS ORDERED: DEXTROSE 500.5 GM/M1 IV PUSH (17:41)
[2017-11-29] MEDS ORDERED: NOVOLOG100 UNIT/1 SUBQ (17:41)
[2017-11-29] MEDS ORDERED: GLUCAGON HCL1 MG IM (17:42)
[2017-11-29] MEDS ORDERED: GLUCOPHAGE500 MG PO (17:45)
== END 2017-11-29 18:33 | DRG 907 ==
LOC: 2N 12:53
PROVIDERS: Internal Medicine
PROC: 0JDL0ZZ Extraction of Right Upper Leg Subcutaneous Tissue and Fascia, Open Approach (ICD-10-PCS; principal; 2017-11-27)
PROC: 05HY33Z Insertion of Infusion Device into Upper Vein, Percutaneous Approach (ICD-10-PCS; principal; 2017-11-27)
PROC: B54MZZA Ultrasonography of Right Upper Extremity Veins, Guidance (ICD-10-PCS; principal; 2017-11-27)
DX: T63.331A Toxic effect of venom of brown recluse spider, accidental (unintentional), initial encounter (principal); E43 Unspecified severe protein-calorie malnutrition; L97.819 Non-pressure chronic ulcer of other part of right lower leg with unspecified severity; L03.115 Cellulitis of right lower limb; E11.22 Type 2 diabetes mellitus with diabetic chronic kidney disease; N18.9 Chronic kidney disease, unspecified; G25.81 Restless legs syndrome; I12.9 Hypertensive chronic kidney disease with stage 1 through stage 4 chronic kidney disease, or unspecified chronic kidney disease; B95.61 Methicillin susceptible Staphylococcus aureus infection as the cause of diseases classified elsewhere; E11.65 Type 2 diabetes mellitus with hyperglycemia; F03.90 Unspecified dementia, unspecified severity, without behavioral disturbance, psychotic disturbance, mood disturbance, and anxiety; D72.829 Elevated white blood cell count, unspecified; E66.9 Obesity, unspecified; Z88.0 Allergy status to penicillin; Z68.36 Body mass index [BMI] 36.0-36.9, adult; Y92.89 Other specified places as the place of occurrence of the external cause; Z91.14 Patient's other noncompliance with medication regimen
CPT/HCPCS: 10797; 27001; 50010; 50101; 50386; 50403; 56526; 62110; 62850; 70005

== ENCOUNTER 2017-12-14 19:38 | Emergency (ER) | payer OTHER ==
[~2017-12-14] VITALS: Ht 157.5 cm; Wt 90.7 kg
[~2017-12-14 19:38] MED LIST changes: +ATENOLOL 25MG T25 M1 PO; +BYSTOLIC 5 MG5 M1 PO; +CIPRO500 MG PO; +DEXTROSE 500.5 GM/M1 IV PUSH; +DOXYCYCLINE 10100 MG PO; +GLUCAGON HCL1 MG IM; +GLUCOSE4 GM PO; +GLUTOSE GEL 1515 G1 PO; +HYDROCODON-ACE1 EAC7 PO; +LISINOPRIL10 MG PO; +NOVOLOG100 UNIT/1 SUBQ; +TRAMADOL 50 MG50 MG PO
[2017-12-14 19:40] VITALS: BP 99/49
== END 2017-12-14 20:45 | disposition home or self-care (01) ==
LOC: ER 19:38
DX: S70.2 Other superficial injuries of hip (principal); I10 Essential (primary) hypertension; E11.9 Type 2 diabetes mellitus without complications; K21.9 Gastro-esophageal reflux disease without esophagitis; G25.81 Restless legs syndrome; Z96.651 Presence of right artificial knee joint; Z79.4 Long term (current) use of insulin; Z88.0 Allergy status to penicillin; W57.XXXD Bitten or stung by nonvenomous insect and other nonvenomous arthropods, subsequent encounter

== ENCOUNTER 2018-09-27 11:09 | Inpatient (IN) | payer OTHER ==
[~2018-09-27] VITALS: Ht 157.5 cm; Wt 79.9 kg
[2018-09-27 11:10] VITALS: BP 146/68
[2018-09-27 11:44] LABS: ABSOLUTE NEUTROPHILS 6.4 thou/uL (1.4-8.2); BASOPHILS 0.7 % (0.0-2.0); EOSINOPHILS 4.5 % (0.0-3.0); HEMATOCRIT 42.3 % (37.0-47.0); LYMPHOCYTES 15.9 % (24.0-44.0); MCHC 33.2 g/dL (28.0-37.0); MCV 90.5 fL (80.0-100.0); MONOCYTES 3.4 % (1.0-8.0); PLATELET COUNT 207 thou/uL (150-400); POLYS 75.5 % (36.0-66.0); RBC 4.67 mil/uL (4.20-5.00); RDW 13.2 % (10.5-14.5); WBC 8.5 thou/uL (4.0-11.0)
[2018-09-27 11:54] LABS: ANION GAP 10 mmol/L (7-16); BUN 35 mg/dL (7-18); CALCIUM 9.6 mg/dL (8.5-10.1); CHLORIDE 105 mmol/L (98-107); CO2 26 mmol/L (21-32); CREATININE 1.9 mg/dL (0.6-1.0); GLUCOSE 146 mg/dL (74-106); POTASSIUM 4.1 mmol/L (3.5-5.1); SODIUM 141 mmol/L (136-145)
[2018-09-27 12:03] LABS: TROPONIN-I <0.06 ng/mL (<0.06)
--- NOTE | 2018-09-27 12:21 | EKG ---
[facility] [place] [address] ELECTROCARDIOGRAM REPORT Name: CASE,ESTEFANI Ewing Room #: [employer] Bob#: [id number] ������������������ Admission: 09/27/18 ������������������ Attend Phys: Discharge: ������������������ Date of : 40 Report #: [id number] ����������������������������������������������������������������� [id number] THIS REPORT FOR: //name// [facility] ED Test Date: 2018-09-27 Test Time: 11:25:50 Pat Name: ESTEFANI RIOS Department: Room: Gender: F Chicken Boner: KKODJOVI : 1940 Requested By: Evgeny Esquivel Order Number: [id number] MD: Marshall Rubio Measurements Intervals [place] Rate: 64 P: -22 [place]: 172 QRS: -1 QRSD: 102 T: 17 QT: 410 QTc: 423 Interpretive Statements Sinus rhythm Abnormal R-wave progression, early transition Cannot rule out inferior infarct, age indeterminate Compared to ECG 11/26/2017 21:46:12 Sinus bradycardia no longer present Electronically Signed On 09-27-2018 12:21:04 CDT by Marshall Rubio [email or web address] ��������������������������������������������� <ELECTRONICALLY SIGNED> ���������������������������������������� By: Marshall Rubio MD, [facility] ��������������������������������������������� 09/27/18 1221 1125 112 Marshall Rubio MD, FAC /EPI
[2018-09-27 14:16] VITALS: BP 119/36
--- NOTE | 2018-09-27 15:29 | 2DMMODE ---
[facility] [address] [place] [address] 2 D/M-MODE ECHOCARDIOGRAM Name: ESTEFANI RIOS Room #: 350-P ADM IN ..#: [id number] ������������� Admission: 09/27/18 ������������� Attend Phys: Nayan Posada, Discharge: ��� ������������� ��� Date of : 40 Date of Service: 09/27/18 1529 �� Report #: [id number] �������� ��������������������������������������������[id number] THIS REPORT FOR: //name// APPROVED REPORT Study performed: 09/27/2018 13:17:27 EXAM: Comprehensive 2D, Doppler, and color-flow Echocardiogram Patient Location: Echo lab Room #: -6 Status: routine BSA: 1.72 HR: 75 bpm BP: 119/36 mmHg Rhythm: NSR Other Information Study Quality: Fair Indications Syncope, Hypotenstion, Hx. DM II and HTN 2D Dimensions RVDd: 32.66 mm IVSd: 12.89 (7-11mm) LVOT Diam: 18.90 (18-24mm) LVDd: 47.22 mm PWd: 13.38 (7-11mm) Ascending Ao: 37.45 (22-36mm) LVDs: 29.79 (25-40mm) Aortic Root: 36.28 mm IVC: 19.00 mm Volumes Left Atrial Volume (Systole) Single Plane 4CH: 54.17 mL LA ESV Index: 35.00 mL/m2 Aortic Valve AoV Peak Alfredo.: 2.54 m/s AO Peak Gr.: 23.71 mmHg LVOT Max P.69 mmHg AO Mean Gr.: 11.54 mmHg AO V2 Mean: 1.52 m/s LVOT Max V: 1.19 m/s AO V2 VTI: 59.02 cm TIKA Vmax: 1.32 cm2 AI Vmax: 3.93 m/s AI George: 1.87 m/s2 AI PHT: 608.41 ms [facility] [place] [place] [address] 2 D/M-MODE ECHOCARDIOGRAM Name: ESTEFANI RIOS Room #: 350-P [facility] IN ..#: [id number] ������������� Admission: 09/27/18 ������������� Attend Phys: Nayan Posada, Discharge: ��� ������������� ��� Date of : 40 Date of Service: 09/27/18 1529 �� Report #: [id number] �������� ��������������������������������������������[id number] Mitral Valve E/A Ratio: 0.7 MV Decel. Time: 330.75 ms MV E Max Alfredo.: 1.02 m/s MV A Alfredo.: 1.43 m/s MV PHT: 95.92 ms IVRT: 119.95 ms Pulmonary Valve PV Peak Alfredo.: 1.27 m/s PV Peak Gr.: 6.47 mmHg Pulmonary Vein P Vein S: 0.70 m/s P Vein A: 0.31 m/s P Vein D: 0.30 m/s P Vein A Dur.: 198.4 msec P Vein S/D Ratio: 2.33 Tricuspid Valve TR Peak Alfredo.: 2.31 m/s RAP Estimate: 10.00 mmHg TR Peak Gr.: 21.33 mmHg PA Pressure: 31.00 mmHg Left Ventricle The left ventricle is normal size. There is normal LV segmental wall motion. Mild concentric left ventricular hypertrophy. The left ventricular systolic function is normal. The left ventricular ejection fraction is within the normal range. LVEF is 55-60%. Mild diastolic dysfunction is present (impaired relaxation pattern). Right Ventricle The right ventricle is normal size. The right ventricular systolic function is normal. Atria Left atrium is borderline dilated. The right atrium size is normal. Aortic Valve The aortic valve is not well visualized. Mild to moderate aortic regurgitation. There is moderate valvular aortic stenosis. Calculated aortic valve area is 1.3 cm2 with maximum pressure gradient of 26 mmHg and mean pressure gradient of 12 mmHg. Mitral Valve Moderate mitral annular calcification. Mild mitral regurgitation. No [facility] [address] [place] [address] 2 D/M-MODE ECHOCARDIOGRAM Name: CASEESTEFANI Room #: 350-P [facility] IN [facility]#: [id number] ������������� Admission: 09/27/18 ������������� Attend Phys: Nayan Posada, Discharge: ��� ������������� ��� Date of : 40 Date of Service: 09/27/18 1529 �� Report #: [id number] �������� ��������������������������������������������[id number] evidence of mitral valve stenosis. Tricuspid Valve The tricuspid valve is normal in structure. Mild tricuspid regurgitation. Estimated PAP of 30 mmHg. Pulmonic Valve Pulmonic valve is not well visualized. There is no pulmonic valvular regurgitation seen. Great Vessels The aortic root is normal in size. The ascending aorta is within upper limits of normal measuring 3.7 cm. IVC is normal in size and collapses <50% with inspiration. Pericardium There is no pericardial effusion. <Conclusion> The left ventricular systolic function is normal. There is normal LV segmental wall motion. LVEF is 55-60%. Mild diastolic dysfunction Mild-moderate valvular aortic stenosis. Mild to moderate aortic regurgitation. Calculated aortic valve area is 1.3 cm2 with maximum pressure gradient of 26 mmHg and mean pressure gradient of 12 mmHg. Moderate mitral annular calcification. Mild mitral regurgitation. Mild tricuspid regurgitation. Estimated pulmonary artery pressure of 30 mmHg. There is no pericardial effusion. ��������������������������������������������� <ELECTRONICALLY SIGNED> ���������������������������������������� By: Marshall Rubio MD, [facility] ��������������������������������������������� 09/27/18 1529 1529 1529 Marshall Rubio MD, FACC /INF
--- NOTE | 2018-09-27 17:33 | NUR ---
PATIENT ADMIT TO UNIT AT 1445 FROM ER. A/O X4. VSS. NO N/V. NO DISDRESS NOTED. WILL KEEP MONITOR.
[2018-09-27 17:44] VITALS: BP 126/64
[2018-09-27 17:46] VITALS: BP 139/63; BP 1436/54
[2018-09-27 19:20] VITALS: BP 123/67
[2018-09-27] MEDS ORDERED: LISINOPRIL20 MG PO (19:54)
[2018-09-27] MEDS ORDERED: METFORMIN HCL500 MG PO (19:54)
[2018-09-27] MEDS ORDERED: LASIX 20 MG TAB20 MG PO (19:55)
[2018-09-28] VITALS: BP 119/67
--- NOTE | 2018-09-28 03:40 | NUR ---
ASSUMED PT CARE AROUND 1900. A&OX4. DENIES ANY PAIN OR SOA. DENIES ANY DIZZINESS. PT SLEPT MOST OF THE NIGHT. RESP EVEN AND UNLABORED. CALLS OUT APPROPRIATELY. UP W/ SBA AND WALKER TO BTR. TOLERATES WELL. VSS. AFEBRILE. FALL PRECAUTIONS IN PLACE. PROGRESSING TOWARD POC GOALS. WILL CONTINUE TO MONITOR FURTHER.
[2018-09-28 05:00] VITALS: BP 120/61; BP 134/60; BP 139/54
[2018-09-28 05:27] LABS: ABSOLUTE NEUTROPHILS 3.7 thou/uL (1.4-8.2); BASOPHILS 0.8 % (0.0-2.0); EOSINOPHILS 6.4 % (0.0-3.0); HEMATOCRIT 37.4 % (37.0-47.0); HEMOGLOBIN 12.5 gm/dL (12.0-15.0); MCH 30.6 pg (26.0-34.0); MCHC 33.3 g/dL (28.0-37.0); PLATELET COUNT 190 thou/uL (150-400); POLYS 50.8 % (36.0-66.0); RBC 4.07 mil/uL (4.20-5.00); RDW 12.8 % (10.5-14.5); WBC 7.3 thou/uL (4.0-11.0)
[2018-09-28 05:30] LABS: ALBUMIN 3.4 g/dL (3.4-5.0); CALCIUM 8.8 mg/dL (8.5-10.1); CREATININE 1.5 mg/dL (0.6-1.0); POTASSIUM 3.5 mmol/L (3.5-5.1); TOTAL BILIRUBIN 0.5 mg/dL (<0.1-1.0); TOTAL PROTEIN 5.6 g/dL (6.4-8.2)
[2018-09-28 06:45] LABS: URINE BILIRUBIN NEGATIVE (Negative); URINE BLOOD NEGATIVE (Negative); URINE CLARITY CLEAR; URINE COLOR YELLOW; URINE GLUCOSE-RANDOM* 3+ (Negative); URINE KETONES NEGATIVE (Negative); URINE NITRITE-REFLEX NEGATIVE (Negative); URINE PROTEIN (DIPSTICK) NEGATIVE (Negative); URINE UROBILINOGEN 0.2 E.U./dl (0.2-1.0)
[2018-09-28 06:46] LABS: URINE LEUKOCYTES-REFLEX 1+ (Negative)
[2018-09-28 06:56] LABS: CASTS None Seen /LPF (None Seen); MUCUS None Seen strn/LPF (None Seen); SQUAMOUS None Seen /LPF (0-3)
[2018-09-28 06:57] LABS: URINE RBC 3-10 Few /HPF (0-2)
[2018-09-28 06:58] LABS: BACTERIA-REFLEX 1-9 Few /HPF (None Seen); CRYSTALS None Seen /LPF (None Seen)
[2018-09-28 07:09] VITALS: BP 141/79
[2018-09-28 15:06] VITALS: BP 120/71
--- NOTE | 2018-09-28 17:47 | NUR ---
Assumed care of Pt at 0700. Pt alert and oriented x3 pleasant in no acute distress. voicing no concerns. denies pain. breathing comfortably on room air. noted torsades on telemetry overnight. mag iv admin per order. up w/ 1 assist and walker to BR. no events on telemetry. pt progressing toward poc goals.
[2018-09-28 20:00] VITALS: BP 153/76
[2018-09-28 23:08] LABS: GLYCOHEMOGLOBIN (HGB A1C) 5.8 % (4.8-5.6)
[2018-09-29 04:30] VITALS: BP 144/77
--- NOTE | 2018-09-29 04:35 | NUR ---
PT MAKING SLOW PROGRESS TOWARDS GOALS. PT UP WITH SBA ASSIST ONLY. DOES USE WALKER TO MOVE TO THE TOILET. HAS DENIED ANY COMPLAINTS.
[2018-09-29 04:49] LABS: HEMATOCRIT 39.4 % (37.0-47.0); HEMOGLOBIN 13.1 gm/dL (12.0-15.0); MCH 30.5 pg (26.0-34.0); MCHC 33.3 g/dL (28.0-37.0); MCV 91.7 fL (80.0-100.0); RBC 4.29 mil/uL (4.20-5.00); RDW 12.8 % (10.5-14.5); WBC 7.4 thou/uL (4.0-11.0)
[2018-09-29 05:03] LABS: CREATININE 1.7 mg/dL (0.6-1.0); MAGNESIUM 2.8 mg/dL (1.8-2.4); POTASSIUM 4.4 mmol/L (3.5-5.1)
[2018-09-29 07:35] VITALS: BP 149/78
[2018-09-29 08:35] VITALS: BP 142/73
--- NOTE | 2018-09-29 10:23 | EKG ---
[place] [address] [facility] [place] [address] ELECTROCARDIOGRAM REPORT Name: ESTEFANI RIOS Room #: 350-P ADM IN M.R.#: [id number] ������������������ Admission: 09/27/18 ������������������ Attend Phys: Nayan Posada MD Discharge: ������������������ Date of : 40 Report #: [id number] ����������������������������������������������������������������� [id number] THIS REPORT FOR: //name// [facility] Test Date: 2018-09-28 Test Time: 10:27:51 Pat Name: ESTEFANI RIOS Department: Room: 350 P Gender: F Earring Maker: Karen HAYNES : 1940 Requested By: Marshall Rubio Order Number: [id number] MD: Marshall Rubio Measurements Intervals [place] Rate: 57 P: 53 [place]: 200 QRS: 3 QRSD: 121 T: 33 QT: 437 QTc: 426 Interpretive Statements Baseline artifact Sinus bradycardia Otherwise no significant abnormality Compared to ECG 09/27/2018 11:25:50 Early R-wave progression is no longer present Electronically Signed On 09-29-2018 10:23:32 CDT by Marshall Rubio [email or web address] ��������������������������������������������� <ELECTRONICALLY SIGNED> ���������������������������������������� By: Marshall Rubio MD, [facility] ��������������������������������������������� 09/29/18 1023 102 Marshall Ruboi MD, [facility] /EPI
--- NOTE | 2018-09-29 10:35 | EKG ---
[address] [employer] [place] [address] ELECTROCARDIOGRAM REPORT Name: ESTEFANI RIOS Room #: 350-P ADM IN M.R.#: [id number] ������������������ Admission: 09/27/18 ������������������ Attend Phys: Nayan Posada MD Discharge: ������������������ Date of : 40 Report #: [id number] ����������������������������������������������������������������� [id number] THIS REPORT FOR: //name// [facility] Test Date: 2018-09-29 Test Time: 07:27:35 Pat Name: ESTEFANI RIOS Department: Room: 350 P Gender: F Grain Commodity Manager: Karen HAYNES : 1940 Requested By: Marshall Rubio Order Number: [id number] MD: Marshall Rubio Measurements Intervals [place] Rate: 56 P: 51 [place]: 178 QRS: -1 QRSD: 99 T: 35 QT: 446 QTc: 431 Interpretive Statements Sinus bradycardia Otherwise normal tracing Compared to ECG 09/27/2018 11:25:50 No significant change was found Electronically Signed On 09-29-2018 10:35:21 CDT by Marshall Rubio [email or web address] ��������������������������������������������� <ELECTRONICALLY SIGNED> ���������������������������������������� By: Marshall Rubio MD, [facility] ��������������������������������������������� 09/29/18 1035 D: [id number] 6 Marshall Rubio MD, FACC /EPI
[2018-09-29 17:08] VITALS: BP 135/63
--- NOTE | 2018-09-29 19:41 | NUR ---
ASSUMED PATIENT CARE AT 0715. A&OX3-4 BUT FORGETFUL. PATIENT HAD A SYNCOPAL EPISODE AT HOME AND WAS FOUND TO BE IN TORSADES YESTERDAY MORNING. PATIENT'S MAGNESIUM WAS LOW AND WAS REPLACED. PATIENT HAS BEEN SR/SB TODAY. CARDIOLOGY TO REEVALUATE PATIENT TOMORROW. ABLE TO MAKE NEEDS KNOWN. WORKING TOWARDS GOALS.
[2018-09-29 20:52] VITALS: BP 135/81
[2018-09-30] VITALS (24 sets, daily range): BP systolic 104–163; BP diastolic 61–95
--- NOTE | 2018-09-30 06:40 | NUR ---
Pt. stated she slept intermittently during the night. Up with assist x1 to bathroom using walker. No dysrythmias and no syncope. Bed alarm on for safety. She requested tylenol for left knee discomfort which she said she had for a while but not too bad. She verbalized some relief. No other concerns voiced. Making progress towards care plan goals.
--- NOTE | 2018-09-30 09:24 | CATHLAB ---
[facility] [address] [place] [address] INVASIVE PROCEDURE REPORT Name: ESTEFANI RIOS Room #: 350-P ADM IN ..#: [id number] ������������� Admission: 09/27/18 ������������� Attend Phys: Nayan Posada, Discharge: ��� ������������� ��� Date of : 40 Date of Service: 09/30/18 0923 �� Report #: [id number] �������� ��������������������������������������������[id number] THIS REPORT FOR: //name// APPROVED REPORT Study performed: 09/30/2018 07:28:04 Patient Details Patient Status: In-Patient Room #: The patient is a 78 year-old female Event Personnel Marshall Rubio Pharmacy Technician Assistant, Chong Lee RN, Maricel Gilbert RN, Merari Guerrier RTR, DWIGHT Mclean, Laura Zaragoza Monitor Procedures Performed Art Access - R femoral artery* Left Heart Cath w/or w/o Coronaries [id number] [facility] Hemostasis with Manual pressure 18650 Initial Mod Sed Same Phys/QHP Gr5y 243065 77616 Mod Sed Same Phys/QHP Ea 895154 Indication Chest pain Procedure Narrative The patient was brought urgentlyelectively to the Cardiac Catheterization Laboratory and was prepped and draped in a sterile manner. The Right Groin^ was infiltrated with 1% Lidocaine subcutaneous anesthesia. A PINNACLE 6FR Sheath #[id number] sheath was inserted into the RFA^. Coronary angiography was performed using coronary diagnostic catheters. The right coronary system was accessed and visualized with a JR 4 catheter. The left coronary system was accessed and visualized with a JL 4 catheter. The left ventricle was accessed and visualized with a Pigtail catheter. Left ventricular/Aortic Valve gradient assessed via catheter pullback. Hemostasis was obtained with manual pressure following sheath removal without any complications. The patient tolerated the procedure well and there were no complications associated with the procedure. There was no hematoma. Intraoperative Conscious Sedation Sedation start time: 07:33 Case end Time: 08:05 Fentanyl 50 mcg Versed 1 mg [facility] [employer] [place] [address] INVASIVE PROCEDURE REPORT Name: ESTEFANI RIOS Room #: 350-P [facility] IN [facility]#: [id number] ������������� Admission: 09/27/18 ������������� Attend Phys: Nayan Posada, Discharge: ��� ������������� ��� Date of : 40 Date of Service: 09/30/18 0923 �� Report #: [id number] �������� ��������������������������������������������[id number] Fluoro Time: 4.52 minutes Dose: DAP 3487.00 cGycm2 315 mGy Contrast Type and Amount: Visipaque 60 ml Coronary Angiography The patient's coronary anatomy is right dominant. Diagnostic Cath Left Main Normal left main LAD Normal left anterior descending Diagonal 1 Normal first diagonal branch Diagonal 2 Small second diagonal branch with mild ostial plaquing Circumflex Large, normal circumflex OM1 Large first marginal branch, angiographically normal OM2 Large second marginal branch, angiographically normal Right Coronary Normal, dominant right coronary R PDA Normal posterior descending branch. RPLV Normal posterolateral branch Left Ventriculography Left Ventriculography was not performed. Ejection Fraction was 55-60% based off patient's Echocardiogram. Hemodynamics The aortic pressure is 123/69 mmHg with a mean of 91 mmHg. The left ventricular pressure is 137/10 mmHg with a mean of mmHg. The left ventricular end diastolic pressure is 25 mmHg. Conclusion 1. Normal left main 2. Essentially normal coronary vasculature. ��������������������������������������������� <ELECTRONICALLY SIGNED> ���������������������������������������� By: Marshall Rubio MD, FACC ��������������������������������������������� 09/30/18922 2 2 Marshall Rubio MD, FACC /INF
--- NOTE | 2018-09-30 14:37 | NUR ---
INITIAL ASSESSMENT: SW reviewed chart and opened case due to length of stay. Pt was admitted from home following a snycopal episode at home. Pt had cardiac cath earlier today. Pt with hx of DM/HTN. SW met with pt at bedside. Introduced role of SW. Pt is alert/orientated. Pt reports she lives at home with her and their adult son. Prior to admission, pt was independent with ADLs. Pt has a cane and walker to assist with ambulation outside of their home. Pt has used [facility] in the past for HH services and has been to [facility] in November of 2017. Pt's PCP is Dr. Nayan Posada. Plan is for pt to discharge home when medically stable. SW is following to assist as needed with discharge planning.
--- NOTE | 2018-09-30 17:46 | NUR ---
ASSUMED PATIENT CARE AT 0715. A&OX4. SOMEWHAT FORGETFUL. PATIENT HAD A HEART CATH TODAY WITH NO INTERVENTIONS DONE. PATIENT CAME BACK TO FLOOR WITH POST CATH BEDREST ORDERS. PATIENT TAKEN TO EP LAB AT 1430 TO HAVE A POSSIBLE PACEMAKER, ICD, OR LOOP RECORDER PLACED. PATIENT ENDED UP HAVING LOOP RECORDER PLACED. PATIENT IS STILL DOWN IN EP LAB. PATIENT WILL BE BEDREST X3 HOURS UPON ARRIVAL TO FLOOR.
[2018-09-30 18:02] LABS: ABSOLUTE NEUTROPHILS 5.2 thou/uL (1.4-8.2); BASOPHILS 0.6 % (0.0-2.0); EOSINOPHILS 3.1 % (0.0-3.0); HEMATOCRIT 37.6 % (37.0-47.0); HEMOGLOBIN 12.4 gm/dL (12.0-15.0); LYMPHOCYTES 26.5 % (24.0-44.0); MCH 30.4 pg (26.0-34.0); PLATELET COUNT 189 thou/uL (150-400); POLYS 64.8 % (36.0-66.0); RBC 4.09 mil/uL (4.20-5.00)
--- NOTE | 2018-09-30 18:05 | EKG ---
[place] [address] [facility] [place] [address] ELECTROCARDIOGRAM REPORT Name: ESTEFANI RIOS Room #: 350-P ADM IN M.R.#: [id number] ������������������ Admission: 09/27/18 ������������������ Attend Phys: Nayan Posada MD Discharge: ������������������ Date of : 40 Report #: [id number] ����������������������������������������������������������������� [id number] THIS REPORT FOR: //name// [facility] Test Date: 2018-09-30 Test Time: 10:58:05 Pat Name: ESTEFANI RIOS Department: Room: 350 P Gender: F Cheese Specialist: Sosa KENNY : 1940 Requested By: Marshall Rubio Order Number: [id number] MD: Neel Yanes Measurements Intervals [place] Rate: 65 P: -3 CT: 176 QRS: 4 QRSD: 103 T: 41 QT: 422 QTc: 439 Interpretive Statements Sinus rhythm Borderline low voltage, extremity leads Abnormal R-wave progression, early transition Compared to ECG 09/29/2018 07:27:35 Sinus bradycardia no longer present Electronically Signed On 09-30-2018 18:05:23 CDT by Neel Yanes [email or web address] ��������������������������������������������� <ELECTRONICALLY SIGNED> ���������������������������������������� By: Neel Yanes MD ��������������������������������������������� 09/30/18 1805 1058 1058 Neel Yanes MD /AMBER
[2018-09-30 18:23] LABS: CALCIUM 8.1 mg/dL (8.5-10.1); CREATININE 1.5 mg/dL (0.6-1.0); POTASSIUM 4.3 mmol/L (3.5-5.1)
--- NOTE | 2018-09-30 21:00 | 2DMMODE ---
[facility] [address] [place] [address] 2 D/M-MODE ECHOCARDIOGRAM Name: CASE,ESTEFANI Ewing Room #: 350-P ADM IN [facility]#: [id number] ������������� Admission: 09/27/18 ������������� Attend Phys: Nayan Posada, Discharge: ��� ������������� ��� Date of : 40 Date of Service: 09/30/182058 �� Report #: [id number] �������� ��������������������������������������������[id number] THIS REPORT FOR: //name// APPROVED REPORT Study performed: 09/30/2018 18:19:32 EXAM: Comprehensive 2D, Doppler, and color-flow Echocardiogram Patient Location: Recovery Room Room #: 350 Status: stat BSA: 1.74 HR: 79 bpm BP: 172/87 mmHg Rhythm: NSR Other Information Study Quality: Adequate Indications S/P ABLATION Left Ventricle The left ventricle is normal size. There is normal LV segmental wall motion. Mild concentric left ventricular hypertrophy. The left ventricular systolic function is normal. The left ventricular ejection fraction is within the normal range. LVEF is 60-65%. Great Vessels IVC is normal in size and collapses >50% with inspiration. Pericardium There is no pericardial effusion. <Conclusion> Mild concentric left ventricular hypertrophy. LVEF is 60-65%. IVC is normal in size and collapses >50% with inspiration. There is no pericardial effusion. ��������������������������������������������� <ELECTRONICALLY SIGNED> ���������������������������������������� By: Anup Cullen MD, [facility] ��������������������������������������������� 09/30/182058 58 58 Anup Cullen MD, [facility] /INF
[2018-10-01 04:00] VITALS: BP 140/72
--- NOTE | 2018-10-01 05:42 | NUR ---
Patient off of bedrest. Left and right groin sites have remained intact with gauze dressings all shift. No further bleeding at groin sites. Minimal drainage circled on left groin site from dayshift yesterday. Patient ambulated for the first time post bedrest around 0345 this AM to the bathroom and back; pt tolerated well. Patient ambulated slow with walker and gait belt x1 assist. Patient has complained of no pain or nausea. Bed alarm on and call light within reach.
[2018-10-01 06:03] LABS: HEMATOCRIT 36.1 % (37.0-47.0); MCH 30.4 pg (26.0-34.0); MCHC 33.2 g/dL (28.0-37.0); MCV 91.8 fL (80.0-100.0); RBC 3.93 mil/uL (4.20-5.00); WBC 9.1 thou/uL (4.0-11.0)
[2018-10-01 06:17] LABS: CALCIUM 8.6 mg/dL (8.5-10.1); CREATININE 1.4 mg/dL (0.6-1.0); POTASSIUM 5.1 mmol/L (3.5-5.1)
[2018-10-01 07:33] VITALS: BP 139/83
[2018-10-01 09:15] VITALS: BP 139/83
--- NOTE | 2018-10-01 09:20 | EKG ---
[place] [address] [address] [facility] [place] [address] ELECTROCARDIOGRAM REPORT Name: ESTEFANI RIOS Room #: 350-P ADM IN M.R.#: [id number] ������������������ Admission: 09/27/18 ������������������ Attend Phys: Nayan Posada MD Discharge: ������������������ Date of : 40 Report #: [id number] ����������������������������������������������������������������� [id number] THIS REPORT FOR: //name// [facility] Test Date: 2018-10-01 Test Time: 07:57:12 Pat Name: ESTEFANI RIOS Department: Room: 350 P Gender: F Supervisor Extrusion: SHAHZAD : 1940 Requested By: Marshall Rubio Order Number: [id number] MD: Marshall Rubio Measurements Intervals [place] Rate: 62 P: 13 [place]: 197 QRS: 22 QRSD: 100 T: 29 QT: 438 QTc: 445 Interpretive Statements Sinus rhythm Borderline low voltage, extremity leads Compared to ECG 09/30/2018 10:58:05 Early R-wave progression no longer present Electronically Signed On 10-01-2018 9:20:08 CDT by Marshall Rubio [email or web address] ��������������������������������������������� <ELECTRONICALLY SIGNED> ���������������������������������������� By: Marshall Rubio MD, [facility] ��������������������������������������������� 10/01/18 0920 0757 075 Marshall Rubio MD, FACC /EPI
[2018-10-01 14:01] VITALS: BP 139/83
--- NOTE | 2018-10-01 15:37 | NUR ---
DISCHARGE NOTE: SW reviewed chart and spoke with nursing. Pt is medically stable for discharge home today. Cardiac cath was negative. No SW needs identified at this time. Pt's family to provide transportation home. SW is available to assist should needs arise.
--- NOTE | 2018-10-01 16:06 | NUR ---
Assumed patient care at 0715. A&Ox4. No complaints of pain. Cleared for dishcarge by cardiology, EP cardiology, and Dr. Posada. Discharge instructions discussed with patient, , and copier technician nurse practitioner. Goals met for discharge.
--- NOTE | 2018-10-29 18:02 | D ---
[facility] [place] [address] DISCHARGE SUMMARY Name: ESTEFANI RIOS Room #: 350-P [facility] IN ..#: [id number] Admission: 09/27/18 ������������������ Attend Phys: Nayan Posada MD Discharge: 10/01/18 ������������������ Date of : 40 Report #: [id number] THIS REPORT FOR: //name// CC: Nayan Posada DATE OF SERVICE: 10/01/2018 SUMMARY OF HISTORY AND PHYSICAL: The patient had 2 episodes of witnessed syncope, nausea and vomiting while eating. After her second one, she was brought to the Emergency Room. Because of the profoundness of her completely passing out during these episodes, admission was indicated. SUMMARY OF HOSPITAL COURSE: She was seen in Cardiology consultation. Initial telemetry tracings suggested torsades as being the cause of syncope, and a cardiac electrophysiology consultation was obtained. Cardiac catheterization was performed with the findings of normal coronary vascular by Dr. Rubio. An electrophysiologic cardiac study was performed by Marc Yanes MD, and was normal. A [employer] Confirm implantable loop recorder was placed. Echocardiogram showed mild left ventricular hypertrophy with an EF of 60-65% and normal segmental wall motion. Mild diastolic dysfunction was present. Mild to moderate aortic regurgitation and moderate aortic valvular stenosis. Mild mitral regurgitation. LABORATORY DATA: Creatinine was 1.9 on admission and responded to IV fluids to 1.4. Ultrasound of the carotids showed qohe-mz-rmksnwwt carotid plaquing. MRI of the head was significant only for subcortical white matter changes suggesting chronic small vessel disease. Chest x-ray showed the heart to be mildly prominent. DISCHARGE DIAGNOSES: 1. Profound syncope of unclear origin. 2. Normal coronary arteries. 3. Normal electrophysiologic study -- unable to induce an abnormal rhythm. 4. Echo: Mild diastolic dysfunction/congestive heart failure, mild concentric LVH, EF 55-60%, gghe-ca-gqixayzm aortic regurgitation and moderate aortic stenosis, moderate mitral regurgitation. 5. Acute kidney injury -- resolved. 6. Type 2 diabetes. 7. Hypertension. 8. Gastroesophageal reflux disease. [facility] [address] [place] [address] DISCHARGE SUMMARY Name: ESTEFANI RIOS Room #: 350-P [facility]..#: [id number] Admission: 09/27/18 ������������������ Attend Phys: Nayan Posada MD Discharge: 10/01/18 ������������������ Date of : 40 Report #: [id number] 9. Restless legs syndrome. 10. Cognitive dysfunction/possibly early dementia. 11. Long-term noncompliance with her diabetes with an A1c of 9.7 in the summer of 2018. 12. While in the hospital, she was able to eat without any problems, and did not have any recurrence of her 2 profound syncopal episodes. PLAN: She is to follow up with Dr. Yanes regarding her loop recorder device to see if she has any arrhythmias. She is to see me in my office in a week and to bring all her medications with her. She is to have home health nursing. ��������������������������������������������� <ELECTRONICALLY SIGNED> ���������������������������������������� By: Nayan Posada MD ��������������������������������������������� 10/29/18 1802 2148 2215 Nayan Posada MD /nt
--- NOTE | 2018-10-29 18:04 | H ---
[facility] [place] [address] HISTORY AND PHYSICAL Name: ESTEFANI RIOS Room #: 350-P [facility] IN ..#: [id number] Admission: 09/27/18 ������������������ Attend Phys: Nayan Posada MD Discharge: 10/01/18 ������������������ Date of : 40 Report #: [id number] THIS REPORT FOR: //name// CC: Nayan Posada DATE OF SERVICE: 09/27/2018 CHIEF COMPLAINT: Syncope, nausea, vomiting. HISTORY OF PRESENT ILLNESS: Information is obtained from the hospital Emergency Room record. She was at her home today when a registered nurse representing her health insurance company was making a home visit. As she recalls she became nauseated first, vomited, and then passed out. A similar episode happened at dinnertime last night. She was eating her breakfast when it happened this morning. Even though both events were witnessed by family members, the record does not reveal a clear sequence of events, and especially does not reveal if the syncope happened first followed by the vomiting or if the vomiting preceded this syncopal episode. Also, missing is information as to how long the syncopal episodes lasted and if there was a post-episode confusion component. She has never had episodes like this before. PAST MEDICAL HISTORY: Significant for type 2 diabetes, hypertension, last year, she had a large brown recluse spider bite in her upper right hip area that finally resolved after a month of treatment. She has a history of GERD, seasonal hayfever, and restless legs syndrome. She has cognitive dysfunction, possible early dementia. Her type 2 diabetes was uncontrolled with an A1c of 9.7 last summer. Her cognitive problems have led to long-term noncompliance. She has had severe malnutrition last summer when she presented with her brown recluse bite. Hypertension. Restless legs syndrome. She denies having had gallbladder problems, gallbladder surgery, appendectomy, or any abdominal surgeries. SOCIAL HISTORY: She lives independently in her own home with her . An older son lives here, although often is away at work. She does not drink nor smoke. FAMILY HISTORY: Noncontributory. REVIEW OF SYSTEMS: HEENT: Negative. No shortness of breath or chest discomfort. No complaints of GERD, reflux, upset stomach or nausea currently. PHYSICAL EXAMINATION: GENERAL: Shows an elderly female in her hospital bed with no distress. [address] [address] HISTORY AND PHYSICAL Name: ESTEFANI RIOS Room #: 350-[facility] IN .R.#: [id number] Admission: 09/27/18 ������������������ Attend Phys: Nayan Posada MD Discharge: 10/01/18 ������������������ Date of : 40 Report #: [id number] HEENT: Unremarkable. The oropharynx is unremarkable except for a few remaining broken off and sharp teeth requiring dental attention and extraction. She reports that these remaining teeth do not hurt. NECK: Has no adenopathy, thyromegaly or masses present. Bilateral soft systolic murmurs are heard. LUNGS: Clear. CARDIOVASCULAR: S1, S2 are normal. There is a soft grade 2-3 systolic ejection murmur present at the right upper intercostal space. There are bilateral carotid bruits. ABDOMEN: Soft and nontender. EXTREMITIES: There is no pedal edema. NEUROLOGIC: Screening neurological examination is intact. Feet: skin is intact, sensation to lite touch intact also. LABORATORY DATA: Creatinine is 1.1 and EGFR is 26, which is the same as baseline in the office 07/02. Albumin has not been measured as of yet. WBCs were 8.5 thousand, hemoglobin is 14.0 with mildly left shift, 75.5% segmented neutrophils. Noncontrast CT scan of the head was unremarkable. A chest x-ray shows mildly prominent heart size is otherwise unremarkable. Severe degenerative disease of the right shoulder joint is noted. CT scan of the abdomen and pelvis dated 11/08/2017 shows borderline prominent right inguinal lymph nodes, but no other abnormalities were identified. CURRENT MEDICATIONS: At home (medication list is maintained by her son and the nurse reviwed the list with him): atenolol 25 mg daily in the morning, furosemide 20 mg daily at 6:00 p.m., lisinopril 20 mg daily in the morning, metformin 500 mg /2 tablets twice a day. Ropinirole 2 mg at bedtime. Son puts medications in the pill boxes for both of his parents, and keeps a list of her medications. She is also on either Farxiga or Jardiance, and has been given scripts and samples of both over the last 6 months. However both she and her are on these, they tend to use each other's, and skip doses due to the expense. The family says its a struggle. ASSESSMENT: 1. Dramatic episodes of syncope, that history suggests associated with eating, and happened soon thereafter while sitting at the meal table. 2. Hypertension. 3. Type 3 diabetes. 4. Mild obesity. 5 Mild - moderate and AI on todays echo. 6. RLS. 7. Cognitive and memory dysfunction. [facility] [address] [place] [address] HISTORY AND PHYSICAL Name: CASEESTEFANI Room #: 350-P [facility] IN ..#: [id number] Admission: 09/27/18 ������������������ Attend Phys: Nayan Posada MD Discharge: 10/01/18 ������������������ Date of : 40 Report #: [id number] 7. Other medical problems as detailed above. PLAN: The patient is admitted to telemetry and has been seen by the Cardiology Department for further evaluation. An echocardiogram has returned showing mild to moderate aortic insufficiency as well as aortic stenosis, mild diastolic dysfunction and an otherwise normal cardiac function. Carotid doppler and MRI brain. ��������������������������������������������� <ELECTRONICALLY SIGNED> ���������������������������������������� By: Nayan Posada MD ��������������������������������������������� 10/29/18 1804 2138 2249 Nayan Posada MD /nt
--- NOTE | 2018-10-31 14:13 | P ---
[facility] [address] [place] [address] PROCEDURE REPORT Name: ESTEFANI RIOS Room #: 350-[facility] IN ..#: [id number] Admission: 09/27/18 ������������������ Attend Phys: Nayan Posada MD Discharge: 10/01/18 ������������������ Date of : 40 Report #: [id number] THIS REPORT FOR: //name// CC: Nayan Posada PROCEDURE: EP study as well as implantable loop recorder insertion. HISTORY OF PRESENT ILLNESS: The patient is a 78-year-old who had an episode of syncope in the setting of nausea and vomiting. On telemetry, she had some possible arrhythmias, which I felt were artifact. She had an echocardiogram showing an EF of 55-60%. She is here for EP study and possible pacemaker, possible ICD, possible loop recorder insertion. ANESTHESIA: The patient underwent MAC anesthesia with no anesthesia related complications. DESCRIPTION OF PROCEDURE: The patient was brought to the EP laboratory in fasting and sedated state and prepped in a sterile fashion. I obtained access in the right femoral vein x 3, placing three 6-Divehi short sheath and under fluoroscopy, I placed catheters at the HRA, His, and RV positions. Basic EP study was then performed. At baseline, the patient was in sinus rhythm with sinus cycle length of 780 milliseconds, KY interval 180 milliseconds, QRS duration 70 milliseconds, QT interval 325 milliseconds, AH interval 115 milliseconds, HV interval of 39 milliseconds. Atrial burst pacing was performed and AV block was noted at 360 milliseconds, atrial ERP is noted at 250 milliseconds at [address] cycle length. Sinus node recovery time was checked pacing at both 300 milliseconds and 250 milliseconds, and these were both within normal limits. Ventricular pacing was performed, and VA block was noted at 500 milliseconds. Ventricular ERP was noted at 220 milliseconds at [address] cycle length and 230 milliseconds at [address] cycle length. Next, ventricular stimulation was performed at 2 [address] cycle lengths at 350 milliseconds and 450 milliseconds respectively. Triple ventricular extrastimuli were delivered, and there was no induction of VT, V-fib or torsades. As such, she had a normal EP study with no evidence of any inducible arrhythmias. As such, the patient was prepped in a sterile fashion for implantable loop recorder insertion. Lidocaine was injected at the incision site. The device was injected under the skin. A single layer suture was placed and surgical glue was placed under the skin layer. The patient awoke neurologically and hemodynamically intact. No complications. No significant bleeding. CONCLUSIONS: 1. Normal EP study with normal SA sterling function. 2. Normal SA sterling function. 3. Normal function. [facility] [address] [place] [address] PROCEDURE REPORT Name: ESTEFANI RIOS Room #: 350-P [facility] IN M.R.#: [id number] Admission: 09/27/18 ������������������ Attend Phys: Nayan Posada MD Discharge: 10/01/18 ������������������ Date of : 40 Report #: [id number] 4. Normal His-Purkinje function. 5. No ventricular arrhythmias induced on ventricular stimulation. 6. Successful implantation of an implantable loop recorder. ��������������������������������������������� <ELECTRONICALLY SIGNED> ���������������������������������������� By: Neel Yanes MD ��������������������������������������������� 10/31/18 1413 1306 1300 Neel Yanes MD /nt
== END 2018-10-01 16:33 | disposition home or self-care (01) | DRG 274 ==
LOC: ER 11:09 → 3W 12:36 → EROBS 12:36 → 3W 14:36
PROVIDERS: Emergency Medicine; Internal Medicine; Internal Medicine Cardiovascular Disease; ADMIT Internal Medicine
PROC: 4A0234Z Measurement of Cardiac Electrical Activity, Percutaneous Approach (ICD-10-PCS; principal; 2018-09-30)
PROC: 0JH632Z Insertion of Monitoring Device into Chest Subcutaneous Tissue and Fascia, Percutaneous Approach (ICD-10-PCS; principal; 2018-09-30)
PROC: B211YZZ Fluoroscopy of Multiple Coronary Arteries using Other Contrast (ICD-10-PCS; principal; 2018-09-30)
PROC: 4A023N7 Measurement of Cardiac Sampling and Pressure, Left Heart, Percutaneous Approach (ICD-10-PCS; principal; 2018-09-30)
PROC: 4A023FZ Measurement of Cardiac Rhythm, Percutaneous Approach (ICD-10-PCS; principal; 2018-09-30)
DX: I35.0 Nonrheumatic aortic (valve) stenosis (principal); N17.9 Acute kidney failure, unspecified; Z96.651 Presence of right artificial knee joint; K21.9 Gastro-esophageal reflux disease without esophagitis; G25.81 Restless legs syndrome; E66.9 Obesity, unspecified; I35.1 Nonrheumatic aortic (valve) insufficiency; N18.9 Chronic kidney disease, unspecified; I49.9 Cardiac arrhythmia, unspecified; E11.22 Type 2 diabetes mellitus with diabetic chronic kidney disease; I12.9 Hypertensive chronic kidney disease with stage 1 through stage 4 chronic kidney disease, or unspecified chronic kidney disease; E61.2 Magnesium deficiency; Z83.3 Family history of diabetes mellitus; Z68.32 Body mass index [BMI] 32.0-32.9, adult; Z88.0 Allergy status to penicillin; Z81.8 Family history of other mental and behavioral disorders; Z80.9 Family history of malignant neoplasm, unspecified; Z87.891 Personal history of nicotine dependence
CPT/HCPCS: 10879; 62110; 62900; 70005

== ENCOUNTER 2019-05-30 20:52 | Emergency (ER) | payer OTHER ==
[~2019-05-30] VITALS: Ht 157.5 cm; Wt 68.0 kg
[~2019-05-30 20:52] MED LIST changes: +LASIX 20 MG TAB20 MG PO; +LISINOPRIL20 MG PO; +METFORMIN HCL500 MG PO
[2019-05-31] MEDS ORDERED: PROTONIX40 MG PO (08:24)
[2019-05-31 09:01] VITALS: BP 128/55
--- NOTE | 2019-06-01 09:43 | P ---
[facility] [address] [place] [address] PROCEDURE REPORT Name: ESTEFANI RIOS Room #: DEP STEPHANIE Rojas#: [id number] Admission: 05/30/19 Attend Phys: Discharge: 05/31/19 Date of : 40 Report #: [id number] THIS REPORT FOR: //name// CC: Hardeep Posada DATE OF SERVICE: 05/31/2019 This is an upper endoscopy report at [facility] on 05/31/2019 at 8 o'clock in the morning, in OR room #9. INDICATION: Possible food impaction, history of esophageal stricture. The patient was brought in by family member after episode of choking, an upper endoscopy was performed on the patient. DESCRIPTION OF PROCEDURE: After obtaining an IV, the patient was placed in the left lateral decubitus position and monitored anesthesia care was used for sedation. The patient was not intubated because of uncertainty of a food impaction. The adult upper endoscope was introduced through the mouth and advanced all the way to the second portion of the duodenum and withdrawn carefully for careful inspection. There was no food impaction in the esophagus. 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 There was mild reflux esophagitis, LA grade A in the GE junction and a small hiatal hernia. Stomach was otherwise normal and normal duodenum. Biopsies were obtained from the esophagitis to exclude Jarquin's and a Sorto dilation was performed with moderate resistance noted with a Sorto 46 Kinyarwanda dilator. Post-dilation inspection with the adult endoscope showed mild mucosal tearing in the upper esophagus and the exam was then aborted. The patient was recovered per established procedures and protocols. RECOMMENDATIONS: To await biopsy results, antireflux measures, start Protonix 40 mg p.o. every day. Repeat endoscopy p.r.n. if biopsies of esophagitis revealed Jarquin's esophagus and repeat endoscopy in 3 years will be recommended. The patient can be discharged home. <ELECTRONICALLY SIGNED> By: Duy Perdue MD 06/01/19 0943 0824 20 Duy Perdue MD /nt
--- NOTE | 2019-06-03 16:06 | PATH ---
[facility] [address] [place] [address] PATHOLOGY RPT PROCEDURE Name: ESTEFANI IRIZARRY Room #: DEP STEPHANIE Mcfadden.#: [id number] Admission: 05/30/19 Date of : 40 Discharge: 05/31/19 Report #: [id number] Path Case #: [id number] [facility] Accession Number: [id number] . 01 Material submitted: . esophagus - BIOPSY OF DISTAL ESOPHAGUS TO RULE OUT BARRETTS. Modifiers: distal . 01 Clinical history: . Dysphagia Esophageal stricture Rule out Jarquin's . 02 Diagnosis: Gastroesophageal mucosa, distal esophagus to rule out Jarquin's, endoscopic biopsy: - Moderate esophagitis. - Negative for intestinal metaplasia or dysplasia. . (IUV:mml; 06/03/2019) QLM 06/03/2019 1116 Local . 02 Electronically signed: . Madeline Nelson MD, Pathologist NPI- [id number] . 01 Gross description: . The specimen is received in formalin, labeled "Estefani Irizarry BX of distal esophagus" and consists of 4 fragments of translucent pink-john tissue measuring between 0.2 cm and 0.3 cm which are entirely submitted in A1. (SDY; 06/02/2019) SYU/SYU 06/02/2019 1244 Local . 02 Pathologist provided ICD-10: K20.9 . 02 CPT . 627905 Specimen Comment: A courtesy copy of this report has been sent to [phone], [phone] Specimen Comment: [phone] Specimen Comment: Report sent to / DR PHIPPS Performed at: [address], [place] [id number] MD Vitaliy Queen MD Phone: [phone] Performed at: [address] [address] PATHOLOGY RPT PROCEDURE Name: ESTEFANI IRIZARRY Room #: DEP STEPHANIE Rojas#: [id number] Admission: 05/30/19 Date of : 40 Discharge: 05/31/19 Report #: [id number] Path Case #: [id number] [address] [id number] MD Madeline Nelson MD Phone: [phone]
== END 2019-05-31 09:00 | disposition home or self-care (01) ==
LOC: ER 20:52
DX: K22.2 Esophageal obstruction (principal); I10 Essential (primary) hypertension; E11.9 Type 2 diabetes mellitus without complications; K21.9 Gastro-esophageal reflux disease without esophagitis; G25.81 Restless legs syndrome; Z96.651 Presence of right artificial knee joint; Z88.0 Allergy status to penicillin
CPT/HCPCS: 62110; 62900; 70005

== ENCOUNTER 2019-05-31 17:03 | Inpatient (IN) | payer OTHER ==
[~2019-05-31] VITALS: Ht 157.5 cm; Wt 82.0 kg
--- NOTE | ~2019-05-31 | D ---
[facility] [place] [address] DISCHARGE SUMMARY Name: ESTEFANI RIOS Room #: 444-P [facility] IN M.R.#: [id number] Admission: 05/31/19 Attend Phys: Nayan Posada MD Discharge: 06/02/19 Date of : 40 Report #: [id number] THIS REPORT FOR: //name// CC: Nayan Posada DATE OF SERVICE: 06/02/2019 SUMMARY OF HISTORY AND PHYSICAL: The patient presented to the Emergency Room late Sunday evening at 05/30/2019 with complaining of being unable to swallow. The weather was severe and she stayed overnight in the Emergency Room and in the morning on 05/31/2019, she underwent an EGD by Dr. Perdue. 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 There was mild reflux esophagitis, LA grade in the GE junction area and a small hiatal hernia. A Sorto dilator was performed to 40 Persian meeting moderate resistance at an esophageal web. Post-dilation inspection with an adult endoscope showed mild mucosal tearing in the upper esophagus and the examination was then aborted, and the patient recovered per established procedures and protocols. Pantoprazole 40 mg once daily was added to her medications and she was discharged from the hospital in the midday and returned back home, only to find out that later Sunday evening (05/31/2019), her dysphagia returned. She came back to the Emergency Room where admission was arranged because of continued dysphagia and the need for IV fluids. SUMMARY OF HOSPITAL COURSE: She was seen in GI consultation and pantoprazole was administered intravenously. She improved tremendously and was able to swallow small amounts of a normal mechanical soft consistency diet. On Sunday morning, 06/02/2019, radiologist was available and the speech therapist what was available and a video swallow was performed. Please see the body of that report for specifics, but by way of review, she was found to have mild dysphagia, without aspiration and the speech therapist reviewed the results and recommended to the patient and her daughter that she chew thoroughly, make an effort at that time to swallow avoid mixed consistencies avoid a straw, take small bites and sips, sit upright after eating, and avoid a stroke. She is to have mechanical soft diet with thin liquids. She is to have her pills in putting or puree consistency. Following her EGD, she was able to eat a mechanical soft diet without any difficulty or signs of aspiration. Additional information: The patient's daughter explains all of her medication, comes in pills that are in one large plastic packet for each morning. She reports that at times, the patient has not taken a full week's worth of these packets of her pills, and that there is confusion with them. As best she can remember the patient takes atenolol 25 mg, lisinopril 20 mg, metformin 500 mg or 850 mg daily in the morning. She also recalls that Jardiance is included in the [address] [address] DISCHARGE SUMMARY Name: ESTEFANI RIOS Room #: 444-P [facility] IN M.R.#: [id number] Admission: 05/31/19 Attend Phys: Nayan Posada MD Discharge: 06/02/19 Date of : 40 Report #: [id number] package pills. This is on mornings when she remembers to take her pills off and she forgets to take the pills. She takes ropinirole at bedtime for restless legs. The patient's daughter, Joya stayed with her 2 nights here at [facility] and observed the tremendous leg movements that she gets with her RLS on the few nights here in the hospital when she did not have any ropinirole. The daughter was able to collect at home and inhaler for her asthma that she brought and showed TAYLOR: It was Vancenase with a nasal inhaler adapter, a small size used in sampling that product and it in January of the year 1999. The patient is supposed to have another inhaler for her asthma, but they were not able to find it before coming up. Also, the patient reports having episodes of loose stools several times a day and then no stool problems for a day, and then repeat stool problems that have been going on since before [place] time. There was difficulty in drawing her blood on this admission and some blood was drawn just in the afternoon of discharge. She was maintained on IV fluids while in the hospital. DISCHARGE DIAGNOSES: 1. 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 2. Mild esophagitis seen on EGD. 3. Small hiatal hernia. 4. Mild dysphagia was seen on a video swallow completed 3 days after her EGD and dilation of the esophageal web. 5. Dementia and memory problems. 6. History of asthma. 7. Type 2 diabetes. 8. Hypertension. 9. Loose stools: The patient reported having loose stool episodes several times a week over perhaps the last 2-4 weeks of nonspecific nature. 10. Anxiety. 11. Moderate malnutrition was found by the dietitian. The albumin was 3.8 on admission. 13. EGFR was 27 and 29 for chronic kidney disease stage 4. WBCs were 6.8 thousand and hemoglobin was 13.4 with hematocrit of 42.5. PLAN: The patient is to continue her current medications. Pantoprazole 40 mg 1 daily in the morning was added to be taken before breakfast. She is to be seen in my office in approximately 3-4 weeks along with her for a followup, she is to bring all her medications with her. A stool specimen was obtained for her [facility] [address] [place] [address] DISCHARGE SUMMARY Name: ESTEFANI RIOS Room #: 444-P [facility] IN M.R.#: [id number] Admission: 05/31/19 Attend Phys: Nayan Posada MD Discharge: 06/02/19 Date of : 40 Report #: [id number] diarrhea, which consisted of loose stools perhaps once or twice a day and perhaps 2-3 days a week for perhaps 2 months prior to [place] time. By: 1846 2221 Nayan Posada MD /nt
[~2019-05-31 17:03] MED LIST changes: +PROTONIX40 MG PO
[2019-05-31 17:04] VITALS: BP 122/80
[2019-05-31 18:13] VITALS: BP 122/80
[2019-05-31 19:41] LABS: CALCIUM 9.7 mg/dL (8.5-10.1); CREATININE 1.8 mg/dL (0.6-1.0)
[2019-05-31 19:42] LABS: POTASSIUM 5.2 mmol/L (3.5-5.1)
[2019-05-31 19:46] LABS: BASOPHILS 0.9 % (0.0-2.0); EOSINOPHILS 2.6 % (0.0-3.0); HEMATOCRIT 42.5 % (37.0-47.0); HEMOGLOBIN 13.4 gm/dL (12.0-15.0); LYMPHOCYTES 12.8 % (24.0-44.0); MCH 29.1 pg (26.0-34.0); MCHC 31.6 g/dL (28.0-37.0); MCV 92.2 fL (80.0-100.0); MONOCYTES 3.1 % (1.0-8.0); PLATELET COUNT 215 thou/uL (150-400); POLYS 80.6 % (36.0-66.0); RBC 4.61 mil/uL (4.20-5.00); RDW 13.8 % (10.5-14.5); WBC 11.2 thou/uL (4.0-11.0)
[2019-05-31 19:47] LABS: ALBUMIN 3.8 g/dL (3.4-5.0); TOTAL BILIRUBIN 0.8 mg/dL (<0.1-1.0); TOTAL PROTEIN 7.1 g/dL (6.4-8.2)
[2019-05-31 20:08] LABS: URINE BILIRUBIN NEGATIVE (Negative); URINE BLOOD NEGATIVE (Negative); URINE CLARITY CLEAR; URINE COLOR YELLOW; URINE GLUCOSE-RANDOM* 3+ (Negative); URINE KETONES NEGATIVE (Negative); URINE LEUKOCYTES-REFLEX NEGATIVE (Negative); URINE NITRITE-REFLEX NEGATIVE (Negative); URINE PROTEIN (DIPSTICK) NEGATIVE (Negative); URINE UROBILINOGEN 0.2 E.U./dl (0.2-1.0)
[2019-05-31 20:40] VITALS: BP 144/84; BP 148/82
[2019-06-01 04:00] VITALS: BP 126/52
[2019-06-01 05:51] LABS: CALCIUM 8.7 mg/dL (8.5-10.1); CREATININE 1.7 mg/dL (0.6-1.0); PHOSPHORUS 3.7 mg/dL (2.5-4.9); POTASSIUM 4.7 mmol/L (3.5-5.1)
[2019-06-01 08:13] VITALS: BP 133/55
[2019-06-01 16:01] VITALS: BP 120/46
[2019-06-01 19:13] VITALS: BP 121/55
[2019-06-02 08:10] VITALS: BP 154/85
[2019-06-02 11:03] VITALS: BP 154/85
[2019-06-02 15:55] LABS: ABSOLUTE NEUTROPHILS 4.5 thou/uL (1.4-8.2); BASOPHILS 0.7 % (0.0-2.0); EOSINOPHILS 5.7 % (0.0-3.0); LYMPHOCYTES 22.6 % (24.0-44.0); MONOCYTES 5.2 % (1.0-8.0); POLYS 65.8 % (36.0-66.0); WBC 6.8 thou/uL (4.0-11.0)
[2019-06-02] MEDS ORDERED: PROTONIX40 M2 PO (17:59)
[2019-06-02] MEDS ORDERED: PROAIR HFA8.5 GM INH (18:01)
[2019-06-03 07:11] LABS: GLYCOHEMOGLOBIN (HGB A1C) 5.8 % (4.8-5.6)
--- NOTE | 2019-06-04 10:59 | H ---
[facility] [place] [address] HISTORY AND PHYSICAL Name: ESTEFANI IRIZARRY Room #: 444-P [facility] IN M.R.#: [id number] Admission: 05/31/19 Attend Phys: Nayan Posada MD Discharge: 06/02/19 Date of : 40 Report #: [id number] THIS REPORT FOR: //name// CC: Duy Posada MD DATE OF SERVICE: 05/31/2019 CHIEF COMPLAINT: Food sticking. HISTORY OF PRESENT ILLNESS: The patient is a 79-year-old white female who originally presented at the Emergency Department on 05/30/2019 with apparent food bolus that was stuck in her esophagus. She was evaluated in the Emergency Room by Dr. Perdue from GI and underwent an endoscopy and dilatation. No food bolus was found at that time. The patient was released to go home and subsequently developed recurrent symptoms with food sticking with swallowing and inability to swallow successfully, which is a completely new symptom for her. She has been seen again by GI and will be having a video swallow evaluation on Sunday. From the Emergency Department, we decided to make her n.p.o. and she had no further problems. Chest x-ray in the Emergency Room on the showed a mild right basilar non-consolidative atelectasis versus infiltration and no other significant findings. PAST MEDICAL HISTORY: Includes type 2 diabetes mellitus, essential hypertension, gastroesophageal reflux disease with recurrent strictures, senile dementia, brown recluse spider bite in the right upper hip in 2018, restless legs syndrome. PAST SURGICAL HISTORY: Prior total knee replacement surgery. ALLERGIES: She has a PENICILLIN allergy recorded in the record. MEDICATIONS: Listed in the Emergency Department visit note and are reviewed and will be held initially during her stay. FAMILY HISTORY: Significant for cancer, diabetes and mother with Alzheimer's disease. SOCIAL HISTORY: The patient is to Mikhail Irizarry. She is a nonsmoker. She has two daughters who have been by to visit. She has no vices. She lives with supportive family members. REVIEW OF SYSTEMS: The patient is explicit about not having slept last couple of nights and is very tired and misses her Requip that allows her to rest peacefully without the restless legs symptoms that so plague her. No other [address] [address] HISTORY AND PHYSICAL Name: ESTEFANI IRIZARRY Room #: 444-P [facility] IN M.R.#: [id number] Admission: 05/31/19 Attend Phys: Nayan Posada MD Discharge: 06/02/19 Date of : 40 Report #: [id number] significant findings. The patient is deemed not a very reliable historian per my conversation with her daughters. PHYSICAL EXAMINATION: VITAL SIGNS: In the Emergency Room showed pulse of 65, with respirations 20 per minute on room air, pulse oximetry 94%, blood pressure 150/80, temperature was 37.1 degrees centigrade, self-reported weight of 150 pounds. GENERAL: This is a pleasant, somewhat unkempt, elderly white female who was previously reported to be spitting out all of her secretions in the Emergency Room, but was swallowing more comfortably her secretions when I visited with her. She had just awakened from a slight nap. No apparent distress noted. HEENT: Extraocular muscles are intact. Oropharynx is moist and pink. Sinuses nontender. Hearing slightly decreased. NECK: Without adenopathy or thyromegaly. There is a soft bruit on the right. LUNGS: Fairly clear. CARDIOVASCULAR: Reveals a regular rhythm with occasional extrasystole. ABDOMEN: Soft. Bowel sounds are present, but diminished. No visceromegaly. No masses. EXTREMITIES: Without cyanosis or clubbing or peripheral edema. MENTAL STATUS: The patient is alert. She is oriented to person, but not place or time. No hallucinations or delusions are noted. No other focal neurologic deficits. Since arrival in the , she had cervical spine x-rays, which showed no acute process. Chest x-ray, which was discussed above. LABORATORY DATA: CBC with differential, which showed a white cell count of 11,200 and a differential of 80.6% segmented neutrophils, 12.8% lymphocytes, 3.1% monocytes, 2.6% eosinophils and 0.9% basophils. Absolute neutrophil count slightly elevated at 9000. The hemoglobin was 13.4 with hematocrit 42.5 and normal red blood cell indices and platelet count was 215,000. Chemistry showed a sodium of 143, potassium 5.2 with mild hemolysis noted, chloride 107, bicarbonate 27, BUN of 43, creatinine 1.8, anion gap was 9. The glucose was 108. The AST was 22, the ALT was 22 as well. The lipase was 146, total bilirubin 0.8, calcium 9.7. Alkaline phosphatase slightly elevated at 149, total protein 7.1 with an albumin of 3.8 and the estimated GFR was 27. Urinalysis showed clear yellow urine with specific gravity of 1.020, pH of 5.5. It was 3+ positive for glucose and otherwise negative on the nearly dipstick test, no microscopic was performed. She had a chemistry in the following day, which showed a BUN down to 37, creatinine down to 1.7 and a normal potassium level. ASSESSMENT AND PLAN: 1. Oropharyngeal dysphagia -- I appreciate the GI consult and agree that an upper GI series with speech therapy involvement will be critical in delineating was actually going on when she has difficulty swallowing. She does not have any obvious palpable thyroid masses, thyroid enlargement, especially substernal could be involved. B12 deficiency could cause a globus sensation in the back of [facility] [address] [place] [address] HISTORY AND PHYSICAL Name: ESTEFANI IRIZARRY Room #: 444-P [facility] IN M.R.#: [id number] Admission: 05/31/19 Attend Phys: Nayan Posada MD Discharge: 06/02/19 Date of : 40 Report #: [id number] her throat and it is worth considering as well. Given the family was concerned that this appears to coincide with emotionally charged times for the patient. This could will be psychosomatic phenomenon. 2. Type 2 diabetes. We will get serial Accu-Cheks and treat accordingly. 3. Restless legs syndrome. We will continue the patient's medications as able. 4. Gastroesophageal reflux disease with recurrent esophageal stricture -- we will defer to GI. 5. History of total knee arthroplasty. 6. History of brown recluse spider bite. 7. Hypertension. We will treat with a goal of average systolic blood pressure 140 or less. <ELECTRONICALLY SIGNED> By: Hector Self MD 06/04/19 1059 15 46 Hector Self MD /nt
== END 2019-06-02 18:43 | disposition home or self-care (01) | DRG 369 ==
LOC: ER 17:03 → 4S 20:17
PROVIDERS: Emergency Medicine; Internal Medicine; ADMIT Internal Medicine
PROC: 0D718ZZ Dilation of Upper Esophagus, Via Natural or Artificial Opening Endoscopic (ICD-10-PCS; principal; 2019-05-31)
DX: Q39.4 Esophageal web (principal); E44.0 Moderate protein-calorie malnutrition; N18.4 Chronic kidney disease, stage 4 (severe); R13.12 Dysphagia, oropharyngeal phase; F03.90 Unspecified dementia, unspecified severity, without behavioral disturbance, psychotic disturbance, mood disturbance, and anxiety; Z96.651 Presence of right artificial knee joint; E11.9 Type 2 diabetes mellitus without complications; G25.81 Restless legs syndrome; K22.2 Esophageal obstruction; K44.9 Diaphragmatic hernia without obstruction or gangrene; J45.909 Unspecified asthma, uncomplicated; F41.9 Anxiety disorder, unspecified; E11.22 Type 2 diabetes mellitus with diabetic chronic kidney disease; I12.9 Hypertensive chronic kidney disease with stage 1 through stage 4 chronic kidney disease, or unspecified chronic kidney disease; K21.0 Gastro-esophageal reflux disease with esophagitis; R19.7 Diarrhea, unspecified; Z79.899 Other long term (current) drug therapy; Z68.33 Body mass index [BMI] 33.0-33.9, adult; Z79.84 Long term (current) use of oral hypoglycemic drugs; Z88.0 Allergy status to penicillin
CPT/HCPCS: 10102

== ENCOUNTER 2019-09-27 06:46 | Emergency (ER) | payer OTHER ==
[~2019-09-27] VITALS: Ht 157.5 cm; Wt 77.1 kg
[2019-09-27] MEDS ORDERED: BACITRACIN28.4 G1 TOP (08:34)
[2019-09-27 09:13] VITALS: BP 130/66
== END 2019-09-27 09:14 | disposition home or self-care (01) ==
LOC: ER 06:46
DX: S01.81XA Laceration without foreign body of other part of head, initial encounter (principal); I10 Essential (primary) hypertension; K21.9 Gastro-esophageal reflux disease without esophagitis; E11.9 Type 2 diabetes mellitus without complications; Z79.899 Other long term (current) drug therapy; Z88.0 Allergy status to penicillin; W18.09XA Striking against other object with subsequent fall, initial encounter; Y93.89 Activity, other specified; Y92.89 Other specified places as the place of occurrence of the external cause; Y99.8 Other external cause status

== ENCOUNTER 2020-01-27 15:59 | Emergency (ER) | payer OTHER ==
[~2020-01-27] VITALS: Ht 157.5 cm; Wt 90.7 kg
[~2020-01-27 15:59] MED LIST changes: +BACITRACIN28.4 G1 TOP
[2020-01-27] MEDS ORDERED: FUROSEMIDE 40 M40 M1 PO (16:27)
[2020-01-27 18:14] LABS: HEMOGLOBIN 13.1 gm/dL (12.0-15.0); MCHC 32.8 g/dL (28.0-37.0); MCV 91.4 fL (80.0-100.0); PLATELET COUNT 192 thou/uL (150-400); RBC 4.37 mil/uL (4.20-5.00); RDW 13.7 % (10.5-14.5); WBC 11.6 thou/uL (4.0-11.0)
[2020-01-27 18:22] LABS: ANION GAP 12 mmol/L (7-16); BUN 38 mg/dL (7-18); CALCIUM 8.3 mg/dL (8.5-10.1); CHLORIDE 107 mmol/L (98-107); CO2 21 mmol/L (21-32); CREATININE 1.6 mg/dL (0.6-1.0); GLUCOSE 167 mg/dL (74-106); SODIUM 140 mmol/L (136-145)
[2020-01-27 18:31] LABS: TROPONIN-I <0.06 ng/mL (<0.06)
[2020-01-27 18:56] LABS: ANISOCYTOSIS 1+; POLYCHROMASIA OCCASIONAL
[2020-01-27 19:17] LABS: URINE BILIRUBIN NEGATIVE (Negative); URINE BLOOD NEGATIVE (Negative); URINE CLARITY CLEAR; URINE COLOR YELLOW; URINE GLUCOSE-RANDOM* NEGATIVE (Negative); URINE KETONES NEGATIVE (Negative); URINE LEUKOCYTES-REFLEX TRACE (Negative); URINE NITRITE-REFLEX NEGATIVE (Negative); URINE PROTEIN (DIPSTICK) NEGATIVE (Negative); URINE SPECIFIC GRAVITY 1.025 (1.005-1.035); URINE UROBILINOGEN 0.2 E.U./dl (0.2-1.0)
[2020-01-27 19:52] VITALS: BP 126/60
--- NOTE | 2020-01-28 07:42 | EKG ---
[facility] [place] [address] ELECTROCARDIOGRAM REPORT Name: ESTEFANI RIOS [id number] Admission: 01/27/20 Attend Phys: Discharge: 01/27/20 Date of : 40 Report #: [id number] THIS REPORT FOR: cc: Nayan Posada MD, Stanley P. 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: [facility] : 1940 Requested By: Evgeny Esquivel Order Number: [id number] MD: Brent Hendrix Measurements Intervals [place] Rate: 69 P: 38 CO: 176 QRS: -6 QRSD: 97 T: 45 QT: 417 QTc: 447 Interpretive Statements Sinus rhythm Atrial premature complex Low voltage, precordial leads Compared to ECG 10/01/2018 07:57:12 Atrial premature complex(es) now present Electronically Signed On 01-28-2020 7:41:57 CDT by Brent Hendrix [email or web address] <ELECTRONICALLY SIGNED> By: Brent Hendrix MD, [facility] 01/28/20 0741 183 183 Brent Hendrix MD, [facility] /EPI
== END 2020-01-27 19:52 | disposition home or self-care (01) ==
LOC: ER 15:59
PROVIDERS: Emergency Medicine
DX: R53.1 Weakness (principal); R19.7 Diarrhea, unspecified; R47.81 Slurred speech; I10 Essential (primary) hypertension; E11.9 Type 2 diabetes mellitus without complications; K21.9 Gastro-esophageal reflux disease without esophagitis; Z96.651 Presence of right artificial knee joint; Z79.899 Other long term (current) drug therapy; Z88.0 Allergy status to penicillin; Z91.048 Other nonmedicinal substance allergy status

== ENCOUNTER 2021-04-06 13:26 | Inpatient (IN) | payer OTHER ==
[~2021-04-06] VITALS: Ht 157.5 cm; Wt 79.4 kg
[~2021-04-06 13:26] MED LIST changes: +FUROSEMIDE 40 M40 M1 PO
[2021-04-06 13:39] VITALS: BP 111/78
[2021-04-06 15:42] LABS: ABSOLUTE NEUTROPHILS 5.8 thou/uL (1.4-8.2); EOSINOPHILS 4.8 % (0.0-3.0); HEMATOCRIT 40.4 % (37.0-47.0); LYMPHOCYTES 18.4 % (24.0-44.0); MCH 29.6 pg (26.0-34.0); MCHC 32.2 g/dL (28.0-37.0); MCV 91.9 fL (80.0-100.0); MONOCYTES 3.8 % (1.0-8.0); PLATELET COUNT 215 thou/uL (150-400)
[2021-04-06 15:56] LABS: CALCIUM 8.9 mg/dL (8.5-10.1); CREATININE 1.7 mg/dL (0.6-1.0); POTASSIUM 4.8 mmol/L (3.5-5.1)
[2021-04-06 16:06] LABS: ALBUMIN 3.2 g/dL (3.4-5.0); TOTAL BILIRUBIN 0.5 mg/dL (0.2-1.0)
[2021-04-06] MEDS ORDERED: ROPINIROLE HCL2 MG PO (17:27)
[2021-04-06 17:38] VITALS: BP 177/93
[2021-04-06] MEDS ORDERED: TRESIBA FL100 UNIT/1 SUBQ (18:13)
[2021-04-06 18:32] LABS: FOLIC ACID 13.8 ng/mL (8.6-58.9)
[2021-04-06 18:39] VITALS: BP 147/87
[2021-04-07 06:37] LABS: ABSOLUTE NEUTROPHILS 5.3 thou/uL (1.4-8.2); EOSINOPHILS 3.9 % (0.0-3.0); HEMATOCRIT 41.9 % (37.0-47.0); HEMOGLOBIN 13.5 gm/dL (12.0-15.0); LYMPHOCYTES 22.2 % (24.0-44.0); MCH 29.8 pg (26.0-34.0); MCHC 32.1 g/dL (28.0-37.0); MCV 92.6 fL (80.0-100.0); MONOCYTES 6.6 % (1.0-8.0); PLATELET COUNT 156 thou/uL (150-400); POLYS 66.3 % (36.0-66.0); RBC 4.52 mil/uL (4.20-5.00); RDW 14.1 % (10.5-14.5)
[2021-04-07 06:41] LABS: CALCIUM 8.5 mg/dL (8.5-10.1); CREATININE 1.6 mg/dL (0.6-1.0)
[2021-04-07 09:07] VITALS: BP 125/73
[2021-04-07 14:35] VITALS: BP 124/56
[2021-04-07 19:05] VITALS: BP 131/72
[2021-04-08 02:33] VITALS: BP 134/77
[2021-04-08 06:45] LABS: HEMOGLOBIN 12.8 gm/dL (12.0-15.0); MCH 29.1 pg (26.0-34.0); MCHC 31.9 g/dL (28.0-37.0); MCV 91.1 fL (80.0-100.0); RBC 4.39 mil/uL (4.20-5.00); RDW 13.8 % (10.5-14.5); WBC 6.9 thou/uL (4.0-11.0)
[2021-04-08 06:50] LABS: CALCIUM 8.3 mg/dL (8.5-10.1); CREATININE 1.8 mg/dL (0.6-1.0); POTASSIUM 3.7 mmol/L (3.5-5.1)
[2021-04-08 07:56] VITALS: BP 144/85
--- NOTE | 2021-04-08 09:57 | HC ---
[facility] [place] [address] CONSULTATION Name: ESTEFANI RIOS Room #: 358-P ADM IN M.R.#: [id number] Admission: 04/06/21 Attend Phys: Tad Baeza MD Discharge: Date of : 40 Report #: [id number] THIS REPORT FOR: cc: Nayan Posada MD, Stanley P. MD Althoff, Jeffrey R. MD ~ DATE OF SERVICE: 04/07/2021 CHIEF COMPLAINT: Cellulitis and ulceration, left lower extremity. HISTORY OF PRESENT ILLNESS: This is an 81-year-old female patient who was admitted through the Emergency Department, has had increased swelling and drainage from her left lower extremity. I have been asked to see her with regard to wound care and I have seen her in the past for similar. PAST MEDICAL HISTORY: Positive for history of right knee replacement, hypertension, type 2 diabetes mellitus, gastroesophageal reflux disease, restless leg syndrome, lower extremity edema and dementia. SOCIAL HISTORY: Negative for alcohol or tobacco use. MEDICATIONS: Include ropinirole, furosemide, atenolol. ALLERGIES: PENICILLIN. REVIEW OF SYSTEMS: Mostly not obtainable due to the patient's dementia. She does note pain in her legs and otherwise review of systems is unobtainable. PHYSICAL EXAMINATION: VITAL SIGNS: At this time include temperature 36.7, pulse 68, respiration of 18, blood pressure 124/56. GENERAL: This is a chronically ill-appearing female patient who appears to be in minimal distress. HEENT: Head normocephalic. Nose and throat are clear. NECK: Supple. LUNGS: Diminished. HEART: Irregular. ABDOMEN: Soft. EXTREMITIES: Lower extremities demonstrate 3+ edema. She has several areas of ulceration and some moist eschar on the lateral lower leg on the left side. There is some surrounding erythema and tenderness and warmth present. NEUROLOGIC: The patient is awake. She does appear to move symmetrically. LABORATORY DATA: Sodium 139, potassium 4.0, chloride 103, CO2 of 22, BUN 34, creatinine 1.6, glucose 174. White blood cell count 8000 with a hemoglobin of 13.5. [facility] [address] [place] [address] CONSULTATION Name: ESTEFANI RIOS Room #: 358-P ADM IN M.R.#: [id number] Admission: 04/06/21 Attend Phys: Tad Baeza MD Discharge: Date of : 40 Report #: [id number] CLINICAL IMPRESSION: 1. Venous type ulceration, left lower extremity with surrounding cellulitis. 2. Acute kidney injury on chronic kidney disease. 3. Type 2 diabetes mellitus. 4. Restless leg syndrome. 5. Mild protein-calorie malnutrition. RECOMMENDATIONS: We will suggest topical Silvadene, morphine cream, Xeroform, Kerlix and then Parth from toes to knees on the left lower extremity. Recommend elevation as much as possible. Antibiotics have been ordered. Continue with medical management, nutritional support. I appreciate being asked to see her in consultation. <ELECTRONICALLY SIGNED> By: Mario Marion MD 04/08/21 0957 1728 [id number] Mario Marion MD /nt
[2021-04-08 19:30] VITALS: BP 104/75
[2021-04-09 04:15] VITALS: BP 137/66
[2021-04-09 08:32] VITALS: BP 191/124
[2021-04-09 15:41] VITALS: BP 132/74
[2021-04-09 20:24] VITALS: BP 143/63
[2021-04-10] VITALS (8 sets, daily range): BP systolic 133–150; BP diastolic 72–88
[2021-04-10] MEDS ORDERED: CEPHALEXIN500 MG PO (12:35)
== END 2021-04-10 16:57 | disposition home or self-care (01) | DRG 603 ==
LOC: ER 13:26 → 3W 16:49 → EROBS 16:49 → 3W 18:13
PROVIDERS: Emergency Medicine; Nurse Practitioner; ADMIT Hospitalist; ATTEND Hospitalist
DX: L03.115 Cellulitis of right lower limb (principal); N17.9 Acute kidney failure, unspecified; E44.1 Mild protein-calorie malnutrition; L97.229 Non-pressure chronic ulcer of left calf with unspecified severity; Z20.822 Contact with and (suspected) exposure to COVID-19; Z96.651 Presence of right artificial knee joint; K21.9 Gastro-esophageal reflux disease without esophagitis; F03.90 Unspecified dementia, unspecified severity, without behavioral disturbance, psychotic disturbance, mood disturbance, and anxiety; G25.81 Restless legs syndrome; N18.9 Chronic kidney disease, unspecified; L03.116 Cellulitis of left lower limb; M25.511 Pain in right shoulder; E11.22 Type 2 diabetes mellitus with diabetic chronic kidney disease; I87.2 Venous insufficiency (chronic) (peripheral); I12.9 Hypertensive chronic kidney disease with stage 1 through stage 4 chronic kidney disease, or unspecified chronic kidney disease; R53.81 Other malaise; I89.0 Lymphedema, not elsewhere classified; Z79.4 Long term (current) use of insulin; Z88.0 Allergy status to penicillin; Z68.32 Body mass index [BMI] 32.0-32.9, adult; Z79.899 Other long term (current) drug therapy
CPT/HCPCS: 10779

== ENCOUNTER 2021-05-22 15:39 | Inpatient (IN) | payer OTHER ==
[~2021-05-22] VITALS: Ht 157.5 cm; Wt 93.0 kg
[~2021-05-22 15:39] MED LIST changes: +CEPHALEXIN500 MG PO; +ROPINIROLE HCL2 MG PO; +TRESIBA FL100 UNIT/1 SUBQ
[2021-05-22 16:15] VITALS: BP 171/93
[2021-05-22 19:04] LABS: ABSOLUTE NEUTROPHILS 5.9 thou/uL (1.4-8.2); BASOPHILS 0.8 % (0.0-2.0); EOSINOPHILS 4.8 % (0.0-3.0); HEMATOCRIT 41.5 % (37.0-47.0); HEMOGLOBIN 13.7 gm/dL (12.0-15.0); LYMPHOCYTES 15.8 % (24.0-44.0); MCV 90.9 fL (80.0-100.0); MONOCYTES 5.7 % (1.0-8.0); PLATELET COUNT 258 thou/uL (150-400); POLYS 72.9 % (36.0-66.0); RBC 4.57 mil/uL (4.20-5.00); RDW 13.8 % (10.5-14.5); WBC 8.1 thou/uL (4.0-11.0)
[2021-05-22 19:20] LABS: CALCIUM 8.8 mg/dL (8.5-10.1); CREATININE 1.8 mg/dL (0.6-1.0); POTASSIUM 3.9 mmol/L (3.5-5.1)
[2021-05-22 19:27] LABS: ALBUMIN 3.5 g/dL (3.4-5.0); TOTAL BILIRUBIN 0.4 mg/dL (0.2-1.0); TOTAL PROTEIN 7.4 g/dL (6.4-8.2)
[2021-05-23 00:08] VITALS: BP 142/92
[2021-05-23 02:57] VITALS: BP 142/92
[2021-05-23 06:18] LABS: MCH 29.6 pg (26.0-34.0); MCHC 32.5 g/dL (28.0-37.0); MCV 91.2 fL (80.0-100.0); RBC 4.38 mil/uL (4.20-5.00); RDW 13.8 % (10.5-14.5); WBC 8.4 thou/uL (4.0-11.0)
[2021-05-23 06:29] LABS: CALCIUM 8.5 mg/dL (8.5-10.1); CREATININE 1.7 mg/dL (0.6-1.0); POTASSIUM 3.8 mmol/L (3.5-5.1)
--- NOTE | 2021-05-23 07:00 | NUR ---
PT PIV OUT THIS MORNING. ATTEMPTED TO INSERT NEW PIV MULTIPLE TIMES, BUT PT IS A VERY DIFFICULT STICK. UPDATED ONCOMING NURSE THAT PT STILL NEEDS IV INSERTED.
[2021-05-23 07:57] VITALS: BP 125/64
[2021-05-23 19:57] VITALS: BP 143/87
--- NOTE | 2021-05-24 06:43 | NUR ---
PT SLEPT MOST OF THE NIGHT. BLE WRAPPED WITH DRESSINGS PER DR ORDER. LOWER EXTREMITITES ELEVATED TO HELP REDUCE SWELLING. VSS. AFEBRILE. NO NEW COMPLAINTS.
[2021-05-24 08:39] VITALS: BP 151/76
[2021-05-24 14:40] VITALS: BP 151/76
[2021-05-24 15:06] VITALS: BP 134/83
--- NOTE | 2021-05-24 15:37 | NUR ---
ASSUMED PT CARE FROM ED AT 1500. PT IS ALERT & ORIENTED X2 TO SEF AND PLACE. PT CAN BE FORGETFUL AND CONFUSE AT TIMES. PT IS ON 3L NC O2. PT HAS IV SITE ON RFA SALINE LOCKED. PT IS ACCUCHECK ACHS. FINISHED ADMISSION. CALLED PT DAUGHTER TO INFORMED THAT PT IS AT THE UNIT. PT HAS BILATERAL CELLULITIS BUT R LEG IS MORE SWOLLEN. PER ED NURSE WOUND CARE ALREADY DID WOUND DRESSING AND HAS BLISTERS ON BILATERAL LOWER EXTREMITIES. WILL CONTINUE TO MONITOR PT. FOLLOW POC.
--- NOTE | 2021-05-24 17:31 | HC ---
[facility] [place] [address] CONSULTATION Name: ESTEFANI RIOS Room #: 440-P ADM IN M.R.#: [id number] Admission: 05/22/21 Attend Phys: Chema Lea MD Discharge: Date of : 40 Report #: [id number] THIS REPORT FOR: cc: Nayan Posada MD, Stanley P. MD Althoff,Mario Rueda MD ~ DATE OF SERVICE: 05/23/2021 CHIEF COMPLAINT: Venous ulcers to the left lower extremity with cellulitis. HISTORY OF PRESENT ILLNESS: This is an 81-year-old female patient who was admitted through the Emergency Department and remains in a boarding currently in the Emergency Department with a history of bilateral lower extremity cellulitis and chronic lymphedema. She is having increasing pain, swelling of her legs and drainage from the ulcers on her lower extremities. I have been asked to see her with regard to continuing wound care. PAST MEDICAL HISTORY: Positive for history of prior right knee replacement, hypertension, type 2 diabetes mellitus, gastroesophageal reflux, restless leg syndrome, congestive heart failure, dementia, cellulitis, bilateral lower extremities. SOCIAL HISTORY: Negative for current alcohol or tobacco use. FAMILY HISTORY: Diabetes and Alzheimer's type dementia. ALLERGIES: PENICILLIN. MEDICATIONS: Ropinirole, furosemide, and insulin. REVIEW OF SYSTEMS: Not reliable and are negative or unobtainable other than that mentioned in the history of present illness. PHYSICAL EXAMINATION: VITAL SIGNS: Include temperature 97.2, pulse 93, respiration of 16, blood pressure 137/81. GENERAL: This is a chronically ill-appearing female patient who appears to be in mild discomfort. HEENT: Head is normocephalic. NECK: Supple. LUNGS: Diminished. HEART: Irregular. ABDOMEN: Soft. EXTREMITIES: Lower extremities demonstrate bilateral lower extremity cellulitis with multiple small areas of ulceration, seemingly more so on the left than on the right. [facility] [address] [address] CONSULTATION Name: ESTEFANI RIOS Room #: 440-P ADM IN M.R.#: [id number] Admission: 05/22/21 Attend Phys: Chema Lea MD Discharge: Date of : 40 Report #: [id number] NEUROLOGIC: The patient is awake. She is a little bit disoriented. LABORATORY DATA: Include sodium 143, potassium 3.9, chloride 105, CO2 30, BUN 45, creatinine 1.8, glucose 149. Albumin is 3.5. White blood cell count 8.1 with a hemoglobin of 13.7. CLINICAL IMPRESSION: 1. Cellulitis, bilateral lower extremities. 2. Bilateral lower extremity lymphedema. 3. Venous type ulcerations, bilateral lower extremities. 4. Acute kidney injury on chronic kidney disease. 5. Type 2 diabetes mellitus. 6. Restless leg syndrome. 7. Mild protein-calorie malnutrition, albumin 3.4. RECOMMENDATIONS: At this point in time, we will recommend topical Silvadene, morphine cream, Xeroform, ABD, Kerlix and Parth toes to knees. Elevate legs when possible. Antibiotics as ordered. Continue with Tubigrip to manage edema on the right leg. Continue with nutritional support and management of underlying medical issues. I appreciate being asked to see her in consultation. <ELECTRONICALLY SIGNED> By: Mario Marion MD 05/24/21 1731 1636 Mario Marion MD /nt
[2021-05-24 20:05] VITALS: BP 105/57
--- NOTE | 2021-05-24 21:00 | HC ---
[facility] [place] [address] CONSULTATION Name: ESTEFANI RIOS Room #: 440-P ADM IN M.R.#: [id number] Admission: 05/22/21 Attend Phys: Chema Lea MD Discharge: Date of : 40 Report #: [id number] THIS REPORT FOR: cc: Nayan Posada MD, Stanley P. MD Geha, Daniel J. MD ~ DATE OF SERVICE: 05/23/2021 INFECTIOUS DISEASE CONSULTATION REASON FOR CONSULTATION: I was asked to evaluate concerning bilateral lower extremity venous stasis ulcers and cellulitis. HISTORY OF PRESENT ILLNESS: The patient is an 81-year-old underlying history of diabetes, chronic kidney disease, restless leg syndrome and dementia, who was hospitalized in mid March with lower extremity cellulitis and venous stasis disease. At that time, she was diagnosed with penicillin-susceptible Staph aureus infection of her lower extremity wounds. Edema was controlled. Placed on IV antibiotic therapy and discharged on enteral therapy. Over the last week, she has had increased pruritus to her lower extremities. Her daughter noticed increased swelling with blistering and ulcerations. Brought into the Emergency Room for further evaluation. No fever, chills or sweats. The patient denies any nausea, vomiting or diarrhea. She has had no specific trauma. REVIEW OF SYSTEMS: A 14-point review of system was negative other than what has been described above. ALLERGIES: PENICILLIN. Does tolerate cephalosporins. MEDICATIONS: As noted on her MAR, which were reviewed. PAST MEDICAL HISTORY: Right total knee arthroplasty, degenerative arthritis, hypertension, diabetes, gastroesophageal reflux, restless leg syndrome, peripheral edema, chronic lymphedema and mild dementia. FAMILY HISTORY: Negative for tuberculosis. SOCIAL HISTORY: Nonsmoker. No significant alcohol intake. She is a and lives with her daughter. PHYSICAL EXAMINATION: GENERAL: She was afebrile and hemodynamically stable. Alert and cooperative. She knew her name and where she was. She was a poor historian otherwise. SKIN: With multiple eschars to her lower legs along with some bullous lesions right upper lateral calf with the edema and erythema extending to her lateral thigh on the right. More pretibial erythema to the left lower extremity. 2+ [facility] [address] [place] [address] CONSULTATION Name: ESTEFANI RIOS Room #: 440-P ADM IN M.R.#: [id number] Admission: 05/22/21 Attend Phys: Chema Lea MD Discharge: Date of : 40 Report #: [id number] edema in the lower leg, 1+ edema in the thigh, all dependent. No palpable adenopathy. She was obese. HEENT: Eyes without scleral icterus. Mouth without mucositis. NECK: Supple. LUNGS: Clear. HEART: Regular. ABDOMEN: Soft and nontender. GENITORECTAL: Examination not performed. SPINE: Nontender. EXTREMITIES: Pulses in her feet were within normal limits. Sensation to touch in her toes within normal limits. PSYCHIATRIC: Mood without anxiety. LABORATORY DATA: Reviewed. Microbiology reviewed. Ultrasound of lower extremities reviewed. IMPRESSION: Chronic venous stasis disease with secondary infection, previously had growth of Staphylococcus aureus and I suspect will be the same. She has chronic lymphedema and chronic kidney disease along with diabetes and restless leg syndrome. RECOMMENDATIONS: We will continue with cefazolin and local wound care. Control edema. Controlled diabetic management. <ELECTRONICALLY SIGNED> By: Hardeep Mcqueen MD 05/24/21 2100 1736 57 Hardeep Mcqueen MD /nt
--- NOTE | 2021-05-25 02:48 | NUR ---
PT IS A/O X3 WITH FORGETFULNESS. C/O INSOMNIA. BILLIARD TABLE REPAIRER NOTIFIED. ORDERS GIVEN. VSS. MEDICATION GIVEN PER MAR. FALL PRECAUTIONS IN PLACE, CALL LIGHT IS WITHIN REACH. PT REFUSED YESENIA WRAPS ON LEGS. C/O LEG PAIN. PRN GIVEN DIRECTED.
[2021-05-25 06:08] LABS: CALCIUM 8.2 mg/dL (8.5-10.1); CREATININE 1.7 mg/dL (0.6-1.0)
[2021-05-25 06:18] LABS: POTASSIUM 2.9 mmol/L (3.5-5.1)
[2021-05-25 08:00] VITALS: BP 128/57
--- NOTE | 2021-05-25 13:41 | NUR ---
ASSUMED PT CARE THIS AM. PT HAS IV SITE ON RFA. PT IS ACCUCHECK ACHS. PT LAST BM WAS TODAY. REINFORCE WOUNDS ON THE BILATERAL LEGS AND APPLIED SILVADENDE MORPHINE CREAM. ELEVATED BILATERAL LEGS. TOOK A PICTURE HOWEVER UNABLE TO PRINT WOUND PICTURES DUE TO PRINTER NOT WORKING. PT IS ON 2L NC 02. INFORMED HOSPITALIST THAT K WAS 2.9 THIS AM AND NIGHT NURSE GAVE 40 MEQ PO MEDS. INFORMED AND SUGGESTED HOSPITALIST TO RECHECK K LAB. WILL CONTINUE TO MONITOR PT. FOLLOW POC.
[2021-05-25 17:03] VITALS: BP 119/67
--- NOTE | 2021-05-25 17:58 | NUR ---
Patient admits with cellulitis and wounds. Met with patient who resides in independent home with all needs on one level. She uses a walker for ambilation and lives with dog brando. Spouse approx 1 year ago. [facility] Caryl recently started to see patient in home due to cellulitis and wound care. Patient with 4 children, 2 boys, 2 girls. Sp with dtsal Foley who DPOA. She reports other sister lives behind patient in [place]. They have cameras and motion detection in home to monitor patient. She has grandchildren and family who present and checks on her daily. Discussed therapy evals and post acute care. Dtr Lauren agreeable. She reports bad experience at [facility] in past. Dtr works in [employer]. Referrals to [facility] and [facility] for review. Dtr to discuss with her brothers and sister this evening post acute care. [employer] list in room for review. [facility] following.
[2021-05-25 19:51] VITALS: BP 146/73
--- NOTE | 2021-05-26 01:52 | NUR ---
PT IS A/O X3 WITH FORGETFULNESS. REQUESTED PRN SLEEP MEDICATION. GIVEN DIRECTED. VSS. FALL PRECAUTIONS IN PLACE, CALL LIGHT IS WITHIN REACH. LEGS ELEVATED ON PILLOWS. DRSG ARE C/D/I. PT IS PROGRESSING TOWARDS PLAN OF CARE DC GOALS.
[2021-05-26 08:51] VITALS: BP 131/63
--- NOTE | 2021-05-26 09:22 | NUR ---
ASSUMED PT CARE THIS AM. PT IS AWAKE AND FORGETFUL AT TIMES. PT HAS NO IV. GIVEN SCHEDULED MEDICATION THIS AM WITHOUT DIFFICULTIES. SENT MRSA PCR TO THE LAB THIS AM. WOUND NURSE CHANGE WOUND DRESSING THIS AM. PT IS ACCUCHECK ACHS. PT TOLERATED DIET AND MEDICATION WELL. WILL CONTINUE TO MONITOR PT. FOLLOW POC.
--- NOTE | 2021-05-26 18:01 | NUR ---
Patient accepted to [facility] notified family and they are in agreement with plan. Can accept for admission in am
--- NOTE | 2021-05-27 04:44 | NUR ---
ASSUMED CARE OF PT AT 1900. BEDSIDE REPORT RECIEVED. DEREJE ASSESSMENT COMPLETE. MEDS GIVEN PER JUL. IV SITE INFILITRATED, THIS NURSE AND ANOTHER NURSE TRIED MORE THAN [address], WILL NEED IV TEAM TO PLACE IN AM. PT FREQUENTLY CRYING OUT, YELLING OUT, PRESSING CALL LIGHT RIGHT AFTER STAFF WAS IN ROOM AND THEN NEEDING NOTHING, THERAPUETIC COMMUNICATION UTILIZED, MULTIPLE INTERVENTIONS ATTEMPTED WITH NO SUCCESS. PT ATTEMPTED TO GET OUT OF BED, HIGH FALL RISK EDUCATION PROVIDED. PT SCRATCHED OPEN ONE OF HER WOUNDS, WOUND REDRESSED X2 DUE TO CONTINIOUS MOVEMENT OF LEGS AND KICKING KERLIX OFF. HALDOL GIVEN TO PT PER ORDER C NO SUCCESS. FREQUENT REPOSITIONING UTILIZED. ALL NEEDS CONTINUOUSLY MET. CALL LIGHT IN REACH, ALL BELONGINGS IN REACH, WATER IN REACH, WILL CONTINUE TO MONITOR
[2021-05-27 07:50] VITALS: BP 145/95
[2021-05-27 10:16] LABS: CALCIUM 8.7 mg/dL (8.5-10.1); CREATININE 1.5 mg/dL (0.6-1.0); MAGNESIUM 1.8 mg/dL (1.8-2.4); POTASSIUM 3.2 mmol/L (3.5-5.1)
[2021-05-27] MEDS ORDERED: LIDOCAINE1 EACH TRANSDERM (12:57)
[2021-05-27] MEDS ORDERED: SSD CREAM 1% 5050 GM TOP (12:57)
[2021-05-27] MEDS ORDERED: PEPCID20 MG PO (12:57)
[2021-05-27] MEDS ORDERED: ACETAMINOPHEN325 M1 PO (12:57)
[2021-05-27] MEDS ORDERED: FLORANEX GRANU1 EACH PO (12:57)
[2021-05-27] MEDS ORDERED: MELATONIN5 M1 PO (12:57)
[2021-05-27] MEDS ORDERED: Cephalexin 500 MG Ca PO (12:57)
[2021-05-27] MEDS ORDERED: REQUIP 1 MG TABL1 M1 PO (12:57)
--- NOTE | 2021-05-27 16:09 | NUR ---
Patient to dc to [facility]. Faxed orders, chart copied. Transfer forms faxed and rec. [facility] transport for 1630. Dtr aware and in agreement with plan
--- NOTE | 2021-05-27 18:40 | NUR ---
PT ASSESSED AT START OF SHIFT. PT ORIENTED DURING THE DAY BUT BECOMES CONFUSED AT NOC PER NOC NURSES. UP TO THE CHAIR FOR SEVERAL HOURS. EATING AND DRINKING WELL. BERNADETTE LE CELLULITIS MUCH IMPROVED. DISCHARGING TO PRISON AT THIS TIME.
== END 2021-05-27 18:10 | DRG 603 ==
LOC: ER 15:39 → 4S 20:53 → EROBS 20:53 → 4S 05-24 14:44
PROVIDERS: Emergency Medicine; Nurse Practitioner Family; ADMIT Internal Medicine; ATTEND Internal Medicine
DX: L03.116 Cellulitis of left lower limb (principal); N17.9 Acute kidney failure, unspecified; E44.1 Mild protein-calorie malnutrition; I13.0 Hypertensive heart and chronic kidney disease with heart failure and stage 1 through stage 4 chronic kidney disease, or unspecified chronic kidney disease; N18.9 Chronic kidney disease, unspecified; L03.115 Cellulitis of right lower limb; G25.81 Restless legs syndrome; E11.22 Type 2 diabetes mellitus with diabetic chronic kidney disease; E66.01 Morbid (severe) obesity due to excess calories; R53.81 Other malaise; Z20.822 Contact with and (suspected) exposure to COVID-19; I89.0 Lymphedema, not elsewhere classified; I87.2 Venous insufficiency (chronic) (peripheral); I50.9 Heart failure, unspecified; Z96.651 Presence of right artificial knee joint; K21.9 Gastro-esophageal reflux disease without esophagitis; F03.90 Unspecified dementia, unspecified severity, without behavioral disturbance, psychotic disturbance, mood disturbance, and anxiety; Z79.4 Long term (current) use of insulin; Z88.5 Allergy status to narcotic agent; Z83.3 Family history of diabetes mellitus; Z82.0 Family history of epilepsy and other diseases of the nervous system; Z86.14 Personal history of Methicillin resistant Staphylococcus aureus infection; Z79.899 Other long term (current) drug therapy; Z68.37 Body mass index [BMI] 37.0-37.9, adult
CPT/HCPCS: 10102